=== PATIENT | male | born 1960 | race Caucasian/White ===

== ENCOUNTER 2020-05-24 15:23 | Inpatient (IN) | payer MEDICARE, MEDICAID ==
[2020-05-24] MEDS ORDERED: 50% Dextrose in Water 50 ML Syringe IV PRN ×2 (16:41→19:01)
[2020-05-24] MEDS ORDERED: Glucagon,Human Recombinant 1 MG Vial IM PRN ×2 (16:41→19:01)
[2020-05-24] MEDS ORDERED: ALPRAZolam 0.5 MG Tab PO PRN (16:47)
[2020-05-24] MEDS ORDERED: Albuterol 8 GM Inhaler INH PRN (17:00)
[2020-05-24] MEDS: Furosemide 40 MG Tab PO SCH (17:42)
[2020-05-24 17:43] LABS: BLOOD UREA NITROGEN,BUN 41 mg/dL (7.0-18.0); CARBON DIOXIDE,CO2 34.7 mmol/L (21.0-32.0); CHLORIDE,CL 97 mmol/L (98-107); GLUCOSE RANDOM 172 mg/dL (74-106); SODIUM,NA 134 mmol/L (136-148)
[2020-05-24] MEDS: Piperacillin/Tazobactam 4.5 GM in Sodium Chloride 0.9% 100 ML IV SCH ×2 (17:44→23:19)
[2020-05-24 17:47] LABS: HEMOGLOBIN A1C 8.6 %
[2020-05-24] MEDS: Insulin Aspart 100 Units/ML 3 ML Pen SUBCUT SCH (17:57)
--- NOTE | 2020-05-24 18:15 | PCM.HP.2 ---
H&P History of Present Illness - General Date of Service: 05/24/20 Admit Problem/Dx: Admission Diagnosis/Problem Admission Diagnosis/Problem Diabetic foot ulcer - History of Present Illness Initial Comments - Free Text/Narative: 60-year-old male direct admission to the medical floor for preop for left foot diabetic ulcer debridement. Patient states he had an MRI of the left foot this past Wednesday and visited with his assistant community manager on . Per podiatry visit there were concerns of possible soft tissue infection of the left foot. Patient admitted to the medical floor for IV antibiotics and preop work-up for surgery which is scheduled for tomorrow. Patient states past medical history to include hypertension, CHF, diabetes, COPD (3-4 L oxygen requirement at home), hypothyroidism, multiple myeloma with treatment to begin this coming Wednesday with lenalidomide. Patient started on IV vancomycin and Zosyn, n.p.o. after midnight. - Related Data Allergies/Adverse Reactions: Allergies Allergy/AdvReac Type Severity Reaction Status Date / Time No Known Allergies Allergy Verified 05/24/20 15:36 Home Medications: Home Meds ALPRAZolam [Alprazolam] 0.5 mg PO BID PRN 05/24/20 [History] Acetaminophen/HYDROcodone [Hailey 325-10 MG] 1 tab PO Q4H PRN 05/24/20 [History] Albuterol [Take Home: Albuterol 18 GM, 1 INH Pack] 2 inh IH Q4H PRN 05/24/20 [History] Budesonide/Formoterol [Symbicort 160-4.5 MCG] 2 inh IH BID 05/24/20 [History] Docusate Sodium [Colace] 200 mg PO BEDTIME 05/24/20 [History] Furosemide 40 mg PO BID 05/24/20 [History] Insulin Glargine,Hum.Rec.Anlog [Basaglar Kwikpen U-100] 60 unit SUBCUT DAILY 05/24/20 [History] Ipratropium/Albuterol Sulfate [Iprat-Albut 0.5-3(2.5) mg/3 ml] 3 ml PO TID 05/24/20 [History] Lenalidomide [Revlimid] 15 mg PO .DAILY X 21 DAYS 05/24/20 [History] Levothyroxine 112 mcg PO ACBREAKFAST 05/24/20 [History] Losartan [Cozaar] 50 mg PO DAILY 05/24/20 [History] Potassium Chloride 10 meq PO DAILY 05/24/20 [History] metOLazone [Metolazone] 5 mg PO DAILY 05/24/20 [History] Social & Family History - Tobacco Use Tobacco Use Status *Q: Current Every Day Tobacco User Years of Tobacco use: 40 Packs/Tins Daily: 1 Second Hand Smoke Exposure: No - Caffeine Use Caffeine Use: Reports: None - Recreational Drug Use Recreational Drug Use: No H&P Review of Systems - Review of Systems: Review Of Systems: See Below General: Denies: Fever, Chills Pulmonary: Denies: Shortness of Breath, Cough Cardiovascular: Reports: Edema. Denies: Chest Pain, Lightheadedness Gastrointestinal: Denies: Abdominal Pain, Nausea, Vomiting Psychiatric: Denies: Confusion Neurological: Denies: Confusion, Dizziness, Headache Exam - Exam Exam: See Below - Vital Signs Vital Signs: Last Vital Signs Temp 98.7 F 05/24/20 15:35 Pulse 91 05/24/20 17:37 Resp 18 05/24/20 15:35 BP 100/61 05/24/20 17:37 Pulse Ox 94 L 05/24/20 17:37 Weight: 338 lb 9.6 oz - Exam Quality Assessment: Supplemental Oxygen (3-4L N/C) General: Alert, Oriented Lungs: Clear to Auscultation, Normal Respiratory Effort Cardiovascular: Regular Rate, Regular Rhythm GI/Abdominal Exam: Normal Bowel Sounds, Soft, Non-Tender Extremities: Pedal Edema Neuro Extensive - Mental Status: Alert, Oriented x3 Psychiatric: Alert - Patient Data Lab Results Last 24 hrs: Laboratory Results - last 24 hr 05/24/20 05/24/20 05/24/20 Range/Units 15:57 16:30 16:58 WBC 5.44 (4.0-11.0) K/uL RBC 4.56 (4.50-5.90) M/uL Hgb 13.3 (13.0-17.0) g/dL Hct 41.9 (38.0-50.0) % MCV 91.9 (80.0-98.0) fL MCH 29.2 (27.0-32.0) pg MCHC 31.7 (31.0-37.0) g/dL RDW Std Deviation 60.5 (28.0-62.0) fl RDW Coeff of Kathy 18 H (11.0-15.0) % Plt Count 175 (150-400) K/uL MPV 9.20 (7.40-12.00) fL Neut % (Auto) 66.5 (48.0-80.0) % Lymph % (Auto) 20.2 (16.0-40.0) % [place] % (Auto) 5.9 (0.0-15.0) % Eos % (Auto) 6.3 (0.0-7.0) % Baso % (Auto) 1.1 (0.0-1.5) % Neut # (Auto) 3.6 (1.4-5.7) K/uL Lymph # (Auto) 1.1 (0.6-2.4) K/uL [place] # (Auto) 0.3 (0.0-0.8) K/uL Eos # (Auto) 0.3 (0.0-0.7) K/uL Baso # (Auto) 0.1 (0.0-0.1) K/uL Nucleated RBC % 0.0 /100WBC Nucleated RBCs # 0 K/uL Sodium (136-148) mmol/L Potassium (3.5-5.1) mmol/L Chloride (98-107) mmol/L Carbon Dioxide (21.0-32.0) mmol/L BUN (7.0-18.0) mg/dL Creatinine (0.8-1.3) mg/dL Est Cr Clr Drug Dosing Estimated GFR (MDRD) ml/min Glucose (74-106) mg/dL POC Glucose 196 H (60-110) mg/dL Hemoglobin A1c (4.5 - 6.2) % Calcium (8.5-10.1) mg/dL Magnesium (1.8-2.4) mg/dL Total Bilirubin (0.2-1.0) mg/dL AST (15-37) IU/L ALT (14-63) IU/L Alkaline Phosphatase (46-116) U/L Total Protein (6.4-8.2) g/dL Albumin (3.4-5.0) g/dL Globulin (2.6-4.0) g/dL Albumin/Globulin Ratio (0.9-1.6) TSH 3rd Generation (0.36-3.74) uIU/mL SARS-CoV-2 RNA (HONORIO) NEGATIVE (NEGATIVE) 05/24/20 05/24/20 Range/Units 16:58 16:58 WBC (4.0-11.0) K/uL RBC (4.50-5.90) M/uL Hgb (13.0-17.0) g/dL Hct (38.0-50.0) % MCV (80.0-98.0) fL MCH (27.0-32.0) pg MCHC (31.0-37.0) g/dL RDW Std Deviation (28.0-62.0) fl RDW Coeff of Kathy (11.0-15.0) % Plt Count (150-400) K/uL MPV (7.40-12.00) fL Neut % (Auto) (48.0-80.0) % Lymph % (Auto) (16.0-40.0) % [place] % (Auto) (0.0-15.0) % Eos % (Auto) (0.0-7.0) % Baso % (Auto) (0.0-1.5) % Neut # (Auto) (1.4-5.7) K/uL Lymph # (Auto) (0.6-2.4) K/uL [place] # (Auto) (0.0-0.8) K/uL Eos # (Auto) (0.0-0.7) K/uL Baso # (Auto) (0.0-0.1) K/uL Nucleated RBC % /100WBC Nucleated RBCs # K/uL Sodium 134 L (136-148) mmol/L Potassium 4.0 (3.5-5.1) mmol/L Chloride 97 L (98-107) mmol/L Carbon Dioxide 34.7 H (21.0-32.0) mmol/L BUN 41 H (7.0-18.0) mg/dL Creatinine 1.2 (0.8-1.3) mg/dL Est Cr Clr Drug Dosing TNP Estimated GFR (MDRD) > 60.0 ml/min Glucose 172 H (74-106) mg/dL POC Glucose (60-110) mg/dL Hemoglobin A1c 8.6 H (4.5 - 6.2) % Calcium 8.9 (8.5-10.1) mg/dL Magnesium 2.2 (1.8-2.4) mg/dL Total Bilirubin 0.6 (0.2-1.0) mg/dL AST 15 (15-37) IU/L ALT 22 (14-63) IU/L Alkaline Phosphatase 137 H (46-116) U/L Total Protein 9.6 H (6.4-8.2) g/dL Albumin 2.3 L (3.4-5.0) g/dL Globulin 7.3 H (2.6-4.0) g/dL Albumin/Globulin Ratio 0.3 L (0.9-1.6) TSH 3rd Generation 2.05 (0.36-3.74) uIU/mL SARS-CoV-2 RNA (HONORIO) (NEGATIVE) Result Diagrams: 05/24/20 16:58 05/24/20 16:58 Sepsis Event Note - Focused Exam Vital Signs: Vital Signs Temp Pulse Resp BP Pulse Ox 05/24/20 17:37 91 100/61 94 L 05/24/20 15:35 98.7 F 96 18 94/58 L 89 L - Problem List (1) Diabetic foot ulcer SNOMED Code(s): 018528523 ICD Code: E11.621 - TYPE 2 DIABETES MELLITUS WITH FOOT ULCER; L97.509 - NON- PRESSURE CHRONIC ULCER OTH PRT UNSP FOOT W UNSP SEVERITY Status: Acute Current Visit: Yes (2) COPD (chronic obstructive pulmonary disease) SNOMED Code(s): 00392553 ICD Code: J44.9 - CHRONIC OBSTRUCTIVE PULMONARY DISEASE, UNSPECIFIED Status: Acute Current Visit: Yes (3) HTN (hypertension) SNOMED Code(s): 62752616 ICD Code: I10 - ESSENTIAL (PRIMARY) HYPERTENSION Status: Acute Current Visit: Yes (4) Type 2 diabetes mellitus SNOMED Code(s): 60049641 ICD Code: E11.9 - TYPE 2 DIABETES MELLITUS WITHOUT COMPLICATIONS Status: Acute Current Visit: Yes (5) Multiple myeloma SNOMED Code(s): 408465279 ICD Code: C90.00 - MULTIPLE MYELOMA NOT HAVING ACHIEVED REMISSION Status: Acute Current Visit: No (6) CHF (congestive heart failure) SNOMED Code(s): 87808565 ICD Code: I50.9 - HEART FAILURE, UNSPECIFIED Status: Acute Current Visit: No (7) Hypothyroid SNOMED Code(s): 96366075 ICD Code: E03.9 - HYPOTHYROIDISM, UNSPECIFIED Status: Acute Current Vis it: No Problem List Initiated/Reviewed/Updated: Yes Orders Last 24hrs: Active Orders 24 hr Category Date Time Status Patient Status [ADT] Routine ADT 05/24/20 16:54 Active Antiembolic Devices [RC] PER UNIT ROUTINE Care 05/24/20 17:16 Active Blood Glucose Check, Bedside [RC] WITHMEALSANDBED Care 05/24/20 17:12 Active Daily Weight [Height and Weight] [RC] DAILY Care 05/24/20 17:22 Active EKG 12 Lead [EKG Documentation Completion] [RC] ROUTINE Care 05/24/20 16:52 Active Oxygen Therapy [RC] PRN Care 05/24/20 17:12 Active RT Post Treatment Assessment [RC] Click to Edit Care 05/24/20 16:50 Active VTE/DVT Education [RC] PER UNIT ROUTINE Care 05/24/20 16:54 Active Vital Signs [RC] Q4H Care 05/24/20 16:54 Active [employer] Diet [DIET] Diet 05/24/20 Dinner Active NPO After Midnight [Nothing per Oral After Midnight Diet 05/25/20 Breakfast Active Diet] [DIET] Echo Comp wo Cont [US] Routine Exams 05/24/20 16:51 Ordered VANCOMYCIN TROUGH [CHEM] Timed Lab 05/26/20 06:30 Ordered ALPRAZolam [Xanax] Med 05/24/20 16:47 Active 0.5 mg PO BID PRN Acetaminophen/HYDROcodone [Hailey 325-10 MG] Med 05/24/20 16:47 Active 1 tab PO Q4H PRN Albuterol [Ventolin HFA] Med 05/24/20 17:00 Active 0 gm INH Q4H PRN Dextrose 50% in Water Med 05/24/20 16:41 Active 50 ml IV ASDIRECTED PRN Docusate Sodium [Colace] Med 05/24/20 21:00 Active 200 mg PO BEDTIME Furosemide [Lasix] Med 05/24/20 17:00 Active 40 mg PO BIDDIURETIC Glucagon,Human Recombinant [GlucaGen] Med 05/24/20 16:41 Active 1 mg IM ASDIRECTED PRN Insulin Aspart [NovoLOG] Med 05/24/20 17:00 Active See Protocol SUBCUT TIDAC Levothyroxine Med 05/25/20 07:30 Active 112 mcg PO ACBREAKFAST Patient's Own Medication [Ptom] Med 05/24/20 21:00 Active 2 each INH BIDRT Pharmacy to Dose - Vancomycin Med 05/24/20 17:30 Active 1 dose .XX ASDIRECTED Piperacillin/Tazobactam [Piperacil-Tazobact] 4.5 gm Med 05/24/20 18:00 Active Sodium Chloride 0.9% [Normal Saline] 100 ml IV Q6H Potassium Chloride [Klor-Con 10] Med 05/25/20 09:00 Active 10 meq PO DAILY VANCOmycin 2 GM/400 ML 2 gm Med 05/24/20 19:00 Active Premix Bag 1 bag IV Q12H metOLazone [Zaroxolyn] Med 05/25/20 09:00 Active 5 mg PO DAILY Sequential Compression Device [OM.PC] Per Unit Routine Oth 05/24/20 17:15 Ordered Resuscitation Status Routine Resus Stat 05/24/20 17:12 Ordered Medication Orders Hydrocodone Bitart/Acetaminophen (Acetaminophen/Hydrocodone 325-10 Mg Tab) 1 tab PO Q4H PRN PRN Reason: Pain Albuterol (Albuterol 8 Gm Inhaler) 0 gm INH Q4H PRN PRN Reason: Shortness of Breath Alprazolam (Alprazolam 0.5 Mg Tab) 0.5 mg PO BID PRN PRN Reason: Anxiety Dextrose/Water (50% Dextrose In Water 50 Ml Syringe) 50 ml IV ASDIRECTED PRN PRN Reason: Hypoglycemia Docusate Sodium (Docusate Sodium 100 Mg Cap) 200 mg PO BEDTIME [facility] Furosemide (Furosemide 40 Mg Tab) 40 mg PO BIDDIURETIC [facility] Last Admin: 05/24/20 17:42 Dose: 40 mg Documented by: SCARLET Glucagon (Glucagon,Human Recombinant 1 Mg Vial) 1 mg IM ASDIRECTED PRN PRN Reason: Hypoglycemia Piperacillin Sod/Tazobactam (Sod 4.5 gm/ Sodium Chloride) 100 mls @ 200 mls/hr IV Q6H [facility] Last Admin: 05/24/20 17:44 Dose: 200 mls/hr Documented by: SCARLET Vancomycin HCl 2 gm/ Premix 400 mls @ 200 mls/hr IV Q12H [facility] Insulin Aspart (Insulin Aspart 100 Units/Ml 3 Ml Pen) 0 unit SUBCUT TIDAC [facility]; Protocol Last Admin: 05/24/20 17:57 Dose: 1 unit Documented by: SCARLET Levothyroxine Sodium (Levothyroxine 112 Mcg Tab) 112 mcg PO ACBREAKFAST [facility] Metolazone (Metolazone 5 Mg Tab) 5 mg PO DAILY [facility] Budesonide/Formoterol 160-4.5 Mcg/Puff 6 Gm Inhaler 2 each INH BIDRT [facility] Potassium Chloride (Potassium Chloride 10 Meq Tab.Er) 10 meq PO DAILY [facility] Vancomycin HCl (Pharmacy To Dose - Vancomycin) 1 dose .XX ASDIRECTED [facility] Assessment/Plan Comment:: Pre-operationCBC, CMP, hemoglobin A1c, EKG, TSH, magnesium, echocardiogram, NPO after midnight Diabetic left foot ulcer-vancomycin, Zosyn every 8 hours. Diabetessliding scale insulin moderate, diabetic diet. Patient states that he takes Lantus 10 units in the daytime 10 units in the evening intermittently based on blood glucose measurements. Patient states that some days he does not take any Lantus prior to bedtime. Patient states that using only sliding scale insulin to control blood sugar levels is adequate. Resume home medications for hypertension, CHF, COPD, hypothyroidism. DVT prophylaxis, SCD. Nicotine patch 14 mg resume post surgery, Telemetry, Daily weight Oritz Score- 0.6%
[2020-05-24] MEDS ORDERED: Insulin Glargine,Human Rec. Analog 100 Units/ML 3 ML Pen SUBCUT PRN (19:01)
[2020-05-24] MEDS: VANCOmycin 2 GM/400 ML 2 GM in Premix Bag 1 BAG IV SCH (19:13)
[2020-05-24] MEDS: Budesonide/Formoterol 160-4.5 MCG/Puff 6 GM Inhaler INH SCH (21:05)
[2020-05-24] MEDS: Docusate Sodium 100 MG Cap PO SCH (21:26)
[2020-05-25] MEDS: Albuterol/Ipratropium 3.0-0.5 MG/3 ML Neb Soln NEB PRN ×2 (02:52→06:52)
[2020-05-25] MEDS: Piperacillin/Tazobactam 4.5 GM in Sodium Chloride 0.9% 100 ML IV SCH ×4 (05:26→23:15)
[2020-05-25 06:15] LABS: CARBON DIOXIDE,CO2 34.2 mmol/L (21.0-32.0); POTASSIUM,K 4.3 mmol/L (3.5-5.1)
[2020-05-25] MEDS ORDERED: Furosemide 40 MG/4 ML VIAL IVPUSH ONE (06:17)
[2020-05-25] MEDS: VANCOmycin 2 GM/400 ML 2 GM in Premix Bag 1 BAG IV SCH ×2 (06:55→18:28)
[2020-05-25] MEDS: Budesonide/Formoterol 160-4.5 MCG/Puff 6 GM Inhaler INH SCH ×3 (07:00→20:08)
[2020-05-25] MEDS: Insulin Aspart 100 Units/ML 3 ML Pen SUBCUT SCH ×3 (07:19→17:19)
[2020-05-25] MEDS: Levothyroxine 112 MCG Tab PO SCH (07:32)
--- NOTE | 2020-05-25 07:37 | PCM.PREANE ---
Preanesthetic Assessment - Anesthesia/Transfusion/Family Hx Anesthesia History: Prior Anesthesia Without Reaction Family History of Anesthesia Reaction: No Transfusion History: No Prior Transfusion(s) - Review of Systems General: Weakness Pulmonary: Shortness of Breath Cardiovascular: Dyspnea on Exertion (Hx CHF, Hx COPD, Hx Diabetes, Hx Shortness of Breath) - Physical Assessment NPO Status Date: 05/25/20 NPO Status Time: 00:05 Vital Signs: Last Vital Signs Temp 37.1 C 05/25/20 05:30 Pulse 88 05/25/20 06:38 Resp 18 05/25/20 06:38 BP 101/44 L 05/25/20 06:38 Pulse Ox 88 L 05/25/20 06:38 Height: 1.88 m Weight: 154.131 kg ASA Class: 4 Dentition: Reports: Bridge - Lab Values: Laboratory Last Values WBC 5.96 K/uL (4.0-11.0) 05/25/20 05:15 RBC 4.51 M/uL (4.50-5.90) 05/25/20 05:15 Hgb 13.1 g/dL (13.0-17.0) 05/25/20 05:15 Hct 41.8 % (38.0-50.0) 05/25/20 05:15 MCV 92.7 fL (80.0-98.0) 05/25/20 05:15 MCH 29.0 pg (27.0-32.0) 05/25/20 05:15 MCHC 31.3 g/dL (31.0-37.0) 05/25/20 05:15 RDW Std Deviation 61.7 fl (28.0-62.0) 05/25/20 05:15 RDW Coeff of Kathy 18 % (11.0-15.0) H 05/25/20 05:15 Plt Count 179 K/uL (150-400) 05/25/20 05:15 MPV 9.50 fL (7.40-12.00) 05/25/20 05:15 Neut % (Auto) 63.4 % (48.0-80.0) 05/25/20 05:15 Lymph % (Auto) 23.3 % (16.0-40.0) 05/25/20 05:15 [place] % (Auto) 6.5 % (0.0-15.0) 05/25/20 05:15 Eos % (Auto) 6.0 % (0.0-7.0) 05/25/20 05:15 Baso % (Auto) 0.8 % (0.0-1.5) 05/25/20 05:15 Neut # (Auto) 3.8 K/uL (1.4-5.7) 05/25/20 05:15 Lymph # (Auto) 1.4 K/uL (0.6-2.4) 05/25/20 05:15 [place] # (Auto) 0.4 K/uL (0.0-0.8) 05/25/20 05:15 Eos # (Auto) 0.4 K/uL (0.0-0.7) 05/25/20 05:15 Baso # (Auto) 0.1 K/uL (0.0-0.1) 05/25/20 05:15 Nucleated RBC % 0.0 /100WBC 05/25/20 05:15 Nucleated RBCs # 0 K/uL 05/25/20 05:15 Sodium 133 mmol/L (136-148) L 05/25/20 05:15 Potassium 4.3 mmol/L (3.5-5.1) 05/25/20 05:15 Chloride 98 mmol/L (98-107) 05/25/20 05:15 Carbon Dioxide 34.2 mmol/L (21.0-32.0) H 05/25/20 05:15 BUN 40 mg/dL (7.0-18.0) H 05/25/20 05:15 Creatinine 1.3 mg/dL (0.8-1.3) 05/25/20 05:15 Est Cr Clr Drug Dosing 70.29 mL/min 05/25/20 05:15 Estimated GFR (MDRD) 56.3 ml/min 05/25/20 05:15 Glucose 145 mg/dL (74-106) H 05/25/20 05:15 POC Glucose 148 mg/dL (60-110) H 05/25/20 06:52 Hemoglobin A1c 8.6 % (4.5-6.2) H 05/24/20 16:58 Calcium 8.7 mg/dL (8.5-10.1) 05/25/20 05:15 Magnesium 2.2 mg/dL (1.8-2.4) 05/24/20 16:58 Total Bilirubin 0.9 mg/dL (0.2-1.0) 05/25/20 05:15 AST 15 IU/L (15-37) 05/25/20 05:15 ALT 17 IU/L (14-63) 05/25/20 05:15 Alkaline Phosphatase 129 U/L (46-116) H 05/25/20 05:15 Total Protein 9.3 g/dL (6.4-8.2) H 05/25/20 05:15 Albumin 2.3 g/dL (3.4-5.0) L 05/25/20 05:15 Globulin 7.0 g/dL (2.6-4.0) H 05/25/20 05:15 Albumin/Globulin Ratio 0.3 (0.9-1.6) L 05/25/20 05:15 TSH 3rd Generation 2.05 uIU/mL (0.36-3.74) 05/24/20 16:58 SARS-CoV-2 RNA (HONORIO) NEGATIVE (NEGATIVE) 05/24/20 16:30 - Allergies Allergies/Adverse Reactions: Allergies Allergy/AdvReac Type Severity Reaction Status Date / Time No Known Allergies Allergy Verified 05/24/20 15:36 - Acknowledgements Anesthesia Type Planned: MAC Pt an Appropriate Candidate for the Planned Anesthesia: Yes Alternatives and Risks of Anesthesia Discussed w Pt/Guardian: Yes Pt/Guardian Understands and Agrees with Anesthesia Plan: Yes PreAnesthesia Questionnaire Cardiovascular History: Reports: Heart Failure, High Cholesterol, Hypertension, Stents Respiratory History: Reports: Asthma, COPD Endocrine/Metabolic History: Reports: Diabetes, Type II, Hypothyroidism, Obesity/BMI 30+ Oncologic (Cancer) History: Reports: Malignant Melanoma - Past Surgical History Other HEENT Surgeries/Procedures: bridge, wears reading glasses - SUBSTANCE USE Tobacco Use Status *Q: Current Every Day Tobacco User Second Hand Smoke Exposure: No Recreational Drug Use History: No - HOME MEDS Home Medications: Home Meds ALPRAZolam [Alprazolam] 0.5 mg PO BID PRN 05/24/20 [History] Acetaminophen/HYDROcodone [Horatio 325-10 MG] 1 tab PO Q4H PRN 05/24/20 [History] Albuterol [Take Home: Albuterol 18 GM, 1 INH Pack] 2 inh IH Q4H PRN 05/24/20 [History] Budesonide/Formoterol [Symbicort 160-4.5 MCG] 2 inh IH BID 05/24/20 [History] Docusate Sodium [Colace] 200 mg PO BEDTIME 05/24/20 [History] Doxycycline [Doxycycline Hyclate] 100 mg PO Q12HR 05/24/20 [History] Furosemide 40 mg PO BID 05/24/20 [History] Hydrocodone/Acetaminophen [Hydrocodone-Acetamin 10-325 mg] 1 each PO Q4HR PRN 05/24/20 [History] Insulin Glargine,Hum.Rec.Anlog [Basaglar Kwikpen U-100] 60 unit SQ 05/24/20 [History] Insulin Glargine,Hum.Rec.Anlog [Basaglar Kwikpen U-100] 60 unit SUBCUT DAILY 05/24/20 [History] Ipratropium/Albuterol Sulfate [Iprat-Albut 0.5-3(2.5) mg/3 ml] 3 ml PO TID 05/24/20 [History] Lenalidomide [Revlimid] 15 mg PO .DAILY X 21 DAYS 05/24/20 [History] Levothyroxine 112 mcg PO ACBREAKFAST 05/24/20 [History] Losartan [Cozaar] 50 mg PO DAILY 05/24/20 [History] Potassium Chloride 10 meq PO DAILY 05/24/20 [History] cephALEXin [Cephalexin] 500 mg PO Q6HR 05/24/20 [History] metOLazone [Metolazone] 5 mg PO DAILY 05/24/20 [History] predniSONE [predniSONE 5 MG/5 ML] 20 mg PO 05/24/20 [History] - CURRENT (IN HOUSE) MEDS Current Meds: Current Medications Hydrocodone Bitart/Acetaminophen (Acetaminophen/Hydrocodone 325-10 Mg Tab) 1 tab PO Q4H PRN PRN Reason: Pain Albuterol (Albuterol 8 Gm Inhaler) 0 gm INH Q4H PRN PRN Reason: Shortness of Breath Albuterol/Ipratropium (Albuterol/Ipratropium 3.0-0.5 Mg/3 Ml Neb Soln) 3 ml NEB Q4HRRT PRN PRN Reason: Dyspnea Last Admin: 05/25/20 06:52 Dose: 3 ml Documented by: Alprazolam (Alprazolam 0.5 Mg Tab) 0.5 mg PO BID PRN PRN Reason: Anxiety Last Admin: 05/24/20 19:13 Dose: 0.5 mg Documented by: Dextrose/Water (50% Dextrose In Water 50 Ml Syringe) 50 ml IV ASDIRECTED PRN PRN Reason: Hypoglycemia Dextrose/Water (50% Dextrose In Water 50 Ml Syringe) 50 ml IV ASDIRECTED PRN PRN Reason: Hypoglycemia Docusate Sodium (Docusate Sodium 100 Mg Cap) 200 mg PO BEDTIME [facility] Last Admin: 05/24/20 21:26 Dose: 200 mg Documented by: Furosemide (Furosemide 40 Mg Tab) 40 mg PO BIDDIURETIC [facility] Last Admin: 05/24/20 17:42 Dose: 40 mg Documented by: Glucagon (Glucagon,Human Recombinant 1 Mg Vial) 1 mg IM ASDIRECTED PRN PRN Reason: Hypoglycemia Glucagon (Glucagon,Human Recombinant 1 Mg Vial) 1 mg IM ASDIRECTED PRN PRN Reason: Hypoglycemia Piperacillin Sod/Tazobactam (Sod 4.5 gm/ Sodium Chloride) 100 mls @ 200 mls/hr IV Q6H [facility] Last Admin: 05/25/20 05:26 Dose: 200 mls/hr Documented by: Vancomycin HCl 2 gm/ Premix 400 mls @ 200 mls/hr IV Q12H [facility] Last Admin: 05/25/20 06:55 Dose: 200 mls/hr Documented by: Insulin Aspart (Insulin Aspart 100 Units/Ml 3 Ml Pen) 0 unit SUBCUT TIDAC [facility]; Protocol Last Admin: 05/25/20 07:19 Dose: Not Given Documented by: Insulin Glargine (Insulin Glargine,Human Rec. Analog 100 Units/Ml 3 Ml Pen) 10 units SUBCUT BEDTIME PRN PRN Reason: Hyperglycemia Levothyroxine Sodium (Levothyroxine 112 Mcg Tab) 112 mcg PO ACBREAKFAST [facility] Last Admin: 05/25/20 07:32 Dose: Not Given Documented by: Metolazone (Metolazone 5 Mg Tab) 5 mg PO DAILY [facility] Budesonide/Formoterol 160-4.5 Mcg/Puff 6 Gm Inhaler 2 each INH BIDRT [facility] Last Admin: 05/25/20 07:00 Dose: Not Given Documented by: Potassium Chloride (Potassium Chloride 10 Meq Tab.Er) 10 meq PO DAILY [facility] Vancomycin HCl (Pharmacy To Dose - Vancomycin) 1 dose .XX ASDIRECTED [facility] Discontinued Medications Furosemide (Furosemide 40 Mg/4 Ml Vial) 40 mg IVPUSH NOW ONE Stop: 05/25/20 06:18 Last Admin: 05/25/20 06:41 Dose: 40 mg Documented by: Lenalidomide [ Revlimid] 15 Mg Capsule 1 each PO DAILY [facility]
[2020-05-25] MEDS: Furosemide 40 MG Tab PO SCH ×2 (07:57→07:59)
--- NOTE | 2020-05-25 07:58 | CR ---
INDICATION: Diabetic foot ulcer. Preoperative chest x-ray. Technique : AP portable chest x-ray FINDINGS: The multiple lytic lesions in the skeleton reported on prior cross-sectional imaging due to the patient`s known multiple myeloma are not well visualized on this study. Small lytic/lucent lesion left clavicle. The heart is upper limits of normal. Rounded area of focal moderate opacity in the right lung base medially could be related to a small amount of infiltrate and/or atelectasis but other masslike opacity is not excluded. Consider correlation with PA and lateral chest x-ray prior to surgery to better evaluate this and/or comparison with recent and/or previous x-rays. Lateral to this opacity there is platelike atelectasis or scarring in the right lung base. Mild platelike atelectasis or scarring in the left mid and lower lung. Lungs otherwise clear. Pulmonary vascularity in the upper lungs mildly increase consistent pulmonary venous congestion. Moderate aortic calcification. Chest otherwise unremarkable. Dictated by Rashard Webb MD @ May 25 2020 7:57AM Signed by Dr. Rashard Webb @ May 25 2020 7:57AM
[2020-05-25] MEDS: Metolazone 5 MG Tab PO SCH (07:59)
[2020-05-25] MEDS: Potassium Chloride 10 MEQ Tab.ER PO SCH (10:09)
[2020-05-25] MEDS: Acetaminophen/HYDROcodone 325-10 MG Tab PO PRN ×3 (10:09→23:16)
[2020-05-25] MEDS: Sodium Chloride 0.65% Nasal Spray 45 ML Bottle NAS SCH ×4 (11:24→22:18)
--- NOTE | 2020-05-25 11:56 | PCM.PN ---
- General Info Date of Service: 05/25/20 Subjective Update: Patient states that he is tired this morning due to sleeping in the chair overnight. Patient states his bed was uncomfortable which is why he can sleep in it. Patient denies chest pain, shortness of breath, headaches, fever, chill, nausea, vomiting. - Review of Systems General: Denies: Fever, Fatigue, Chills Pulmonary: Denies: Shortness of Breath, Pleuritic Chest Pain Cardiovascular: Reports: Edema. Denies: Chest Pain Gastrointestinal: Denies: Abdominal Pain, Nausea, Vomiting Neurological: Denies: Confusion, Dizziness, Headache Psychiatric: Denies: Confusion - Patient Data Vitals - Most Recent: Last Vital Signs Temp 98.6 F 05/25/20 10:16 Pulse 85 05/25/20 10:16 Resp 18 05/25/20 10:16 BP 92/54 L 05/25/20 10:16 Pulse Ox 6 L 05/25/20 10:16 Weight - Most Recent: 339 lb 12.8 oz I&O - Last 24 Hours: Intake & Output 05/24/20 05/25/20 05/25/20 22:59 06:59 14:59 Intake Total 400 750 400 Output Total 900 Balance 400 -150 400 Lab Results Last 24 Hours: Laboratory Results - last 24 hr 05/24/20 05/24/20 05/24/20 Range/Units 15:57 16:30 16:58 WBC 5.44 (4.0-11.0) K/uL RBC 4.56 (4.50-5.90) M/uL Hgb 13.3 (13.0-17.0) g/dL Hct 41.9 (38.0-50.0) % MCV 91.9 (80.0-98.0) fL MCH 29.2 (27.0-32.0) pg MCHC 31.7 (31.0-37.0) g/dL RDW Std Deviation 60.5 (28.0-62.0) fl RDW Coeff of Kathy 18 H (11.0-15.0) % Plt Count 175 (150-400) K/uL MPV 9.20 (7.40-12.00) fL Neut % (Auto) 66.5 (48.0-80.0) % Lymph % (Auto) 20.2 (16.0-40.0) % [place] % (Auto) 5.9 (0.0-15.0) % Eos % (Auto) 6.3 (0.0-7.0) % Baso % (Auto) 1.1 (0.0-1.5) % Neut # (Auto) 3.6 (1.4-5.7) K/uL Lymph # (Auto) 1.1 (0.6-2.4) K/uL [place] # (Auto) 0.3 (0.0-0.8) K/uL Eos # (Auto) 0.3 (0.0-0.7) K/uL Baso # (Auto) 0.1 (0.0-0.1) K/uL Nucleated RBC % 0.0 /100WBC Nucleated RBCs # 0 K/uL Sodium (136-148) mmol/L Potassium (3.5-5.1) mmol/L Chloride (98-107) mmol/L Carbon Dioxide (21.0-32.0) mmol/L BUN (7.0-18.0) mg/dL Creatinine (0.8-1.3) mg/dL Est Cr Clr Drug Dosing Estimated GFR (MDRD) ml/min Glucose (74-106) mg/dL POC Glucose 196 H (60-110) mg/dL Hemoglobin A1c (4.5 - 6.2) % Calcium (8.5-10.1) mg/dL Magnesium (1.8-2.4) mg/dL Total Bilirubin (0.2-1.0) mg/dL AST (15-37) IU/L ALT (14-63) IU/L Alkaline Phosphatase (46-116) U/L B-Natriuretic Peptide (<100) PG/ML Total Protein (6.4-8.2) g/dL Albumin (3.4-5.0) g/dL Globulin (2.6-4.0) g/dL Albumin/Globulin Ratio (0.9-1.6) TSH 3rd Generation (0.36-3.74) uIU/mL SARS-CoV-2 RNA (HONORIO) NEGATIVE (NEGATIVE) 05/24/20 05/24/20 05/24/20 Range/Units 16:58 16:58 21:23 WBC (4.0-11.0) K/uL RBC (4.50-5.90) M/uL Hgb (13.0-17.0) g/dL Hct (38.0-50.0) % MCV (80.0-98.0) fL MCH (27.0-32.0) pg MCHC (31.0-37.0) g/dL RDW Std Deviation (28.0-62.0) fl RDW Coeff of Kathy (11.0-15.0) % Plt Count (150-400) K/uL MPV (7.40-12.00) fL Neut % (Auto) (48.0-80.0) % Lymph % (Auto) (16.0-40.0) % [place] % (Auto) (0.0-15.0) % Eos % (Auto) (0.0-7.0) % Baso % (Auto) (0.0-1.5) % Neut # (Auto) (1.4-5.7) K/uL Lymph # (Auto) (0.6-2.4) K/uL [place] # (Auto) (0.0-0.8) K/uL Eos # (Auto) (0.0-0.7) K/uL Baso # (Auto) (0.0-0.1) K/uL Nucleated RBC % /100WBC Nucleated RBCs # K/uL Sodium 134 L (136-148) mmol/L Potassium 4.0 (3.5-5.1) mmol/L Chloride 97 L (98-107) mmol/L Carbon Dioxide 34.7 H (21.0-32.0) mmol/L BUN 41 H (7.0-18.0) mg/dL Creatinine 1.2 (0.8-1.3) mg/dL Est Cr Clr Drug Dosing TNP Estimated GFR (MDRD) > 60.0 ml/min Glucose 172 H (74-106) mg/dL POC Glucose 151 H (60-110) mg/dL Hemoglobin A1c 8.6 H (4.5 - 6.2) % Calcium 8.9 (8.5-10.1) mg/dL Magnesium 2.2 (1.8-2.4) mg/dL Total Bilirubin 0.6 (0.2-1.0) mg/dL AST 15 (15-37) IU/L ALT 22 (14-63) IU/L Alkaline Phosphatase 137 H (46-116) U/L B-Natriuretic Peptide (<100) PG/ML Total Protein 9.6 H (6.4-8.2) g/dL Albumin 2.3 L (3.4-5.0) g/dL Globulin 7.3 H (2.6-4.0) g/dL Albumin/Globulin Ratio 0.3 L (0.9-1.6) TSH 3rd Generation 2.05 (0.36-3.74) uIU/mL SARS-CoV-2 RNA (HONORIO) (NEGATIVE) 05/25/20 05/25/20 05/25/20 Range/Units 05:15 05:15 05:15 WBC 5.96 (4.0-11.0) K/uL RBC 4.51 (4.50-5.90) M/uL Hgb 13.1 (13.0-17.0) g/dL Hct 41.8 (38.0-50.0) % MCV 92.7 (80.0-98.0) fL MCH 29.0 (27.0-32.0) pg MCHC 31.3 (31.0-37.0) g/dL RDW Std Deviation 61.7 (28.0-62.0) fl RDW Coeff of Kathy 18 H (11.0-15.0) % Plt Count 179 (150-400) K/uL MPV 9.50 (7.40-12.00) fL Neut % (Auto) 63.4 (48.0-80.0) % Lymph % (Auto) 23.3 (16.0-40.0) % [place] % (Auto) 6.5 (0.0-15.0) % Eos % (Auto) 6.0 (0.0-7.0) % Baso % (Auto) 0.8 (0.0-1.5) % Neut # (Auto) 3.8 (1.4-5.7) K/uL Lymph # (Auto) 1.4 (0.6-2.4) K/uL [place] # (Auto) 0.4 (0.0-0.8) K/uL Eos # (Auto) 0.4 (0.0-0.7) K/uL Baso # (Auto) 0.1 (0.0-0.1) K/uL Nucleated RBC % 0.0 /100WBC Nucleated RBCs # 0 K/uL Sodium 133 L (136-148) mmol/L Potassium 4.3 (3.5-5.1) mmol/L Chloride 98 (98-107) mmol/L Carbon Dioxide 34.2 H (21.0-32.0) mmol/L BUN 40 H (7.0-18.0) mg/dL Creatinine 1.3 (0.8-1.3) mg/dL Est Cr Clr Drug Dosing 70.29 Estimated GFR (MDRD) 56.3 ml/min Glucose 145 H (74-106) mg/dL POC Glucose (60-110) mg/dL Hemoglobin A1c (4.5 - 6.2) % Calcium 8.7 (8.5-10.1) mg/dL Magnesium (1.8-2.4) mg/dL Total Bilirubin 0.9 (0.2-1.0) mg/dL AST 15 (15-37) IU/L ALT 17 (14-63) IU/L Alkaline Phosphatase 129 H (46-116) U/L B-Natriuretic Peptide 122 H (<100) PG/ML Total Protein 9.3 H (6.4-8.2) g/dL Albumin 2.3 L (3.4-5.0) g/dL Globulin 7.0 H (2.6-4.0) g/dL Albumin/Globulin Ratio 0.3 L (0.9-1.6) TSH 3rd Generation (0.36-3.74) uIU/mL SARS-CoV-2 RNA (HONORIO) (NEGATIVE) 05/25/20 Range/Units 06:52 WBC (4.0-11.0) K/uL RBC (4.50-5.90) M/uL Hgb (13.0-17.0) g/dL Hct (38.0-50.0) % MCV (80.0-98.0) fL MCH (27.0-32.0) pg MCHC (31.0-37.0) g/dL RDW Std Deviation (28.0-62.0) fl RDW Coeff of Kathy (11.0-15.0) % Plt Count (150-400) K/uL MPV (7.40-12.00) fL Neut % (Auto) (48.0-80.0) % Lymph % (Auto) (16.0-40.0) % [place] % (Auto) (0.0-15.0) % Eos % (Auto) (0.0-7.0) % Baso % (Auto) (0.0-1.5) % Neut # (Auto) (1.4-5.7) K/uL Lymph # (Auto) (0.6-2.4) K/uL [place] # (Auto) (0.0-0.8) K/uL Eos # (Auto) (0.0-0.7) K/uL Baso # (Auto) (0.0-0.1) K/uL Nucleated RBC % /100WBC Nucleated RBCs # K/uL Sodium (136-148) mmol/L Potassium (3.5-5.1) mmol/L Chloride (98-107) mmol/L Carbon Dioxide (21.0-32.0) mmol/L BUN (7.0-18.0) mg/dL Creatinine (0.8-1.3) mg/dL Est Cr Clr Drug Dosing Estimated GFR (MDRD) ml/min Glucose (74-106) mg/dL POC Glucose 148 H (60-110) mg/dL Hemoglobin A1c (4.5 - 6.2) % Calcium (8.5-10.1) mg/dL Magnesium (1.8-2.4) mg/dL Total Bilirubin (0.2-1.0) mg/dL AST (15-37) IU/L ALT (14-63) IU/L Alkaline Phosphatase (46-116) U/L B-Natriuretic Peptide (<100) PG/ML Total Protein (6.4-8.2) g/dL Albumin (3.4-5.0) g/dL Globulin (2.6-4.0) g/dL Albumin/Globulin Ratio (0.9-1.6) TSH 3rd Generation (0.36-3.74) uIU/mL SARS-CoV-2 RNA (HONORIO) (NEGATIVE) Med Orders - Current: Current Medications Hydrocodone Bitart/Acetaminophen (Acetaminophen/Hydrocodone 325-10 Mg Tab) 1 tab PO Q4H PRN PRN Reason: Pain Last Admin: 05/25/20 10:09 Dose: 1 tab Documented by: Albuterol (Albuterol 8 Gm Inhaler) 0 gm INH Q4H PRN PRN Reason: Shortness of Breath Albuterol/Ipratropium (Albuterol/Ipratropium 3.0-0.5 Mg/3 Ml Neb Soln) 3 ml NEB Q4HRRT PRN PRN Reason: Dyspnea Last Admin: 05/25/20 06:52 Dose: 3 ml Documented by: Alprazolam (Alprazolam 0.5 Mg Tab) 0.5 mg PO BID PRN PRN Reason: Anxiety Last Admin: 05/24/20 19:13 Dose: 0.5 mg Documented by: Budesonide/Formoterol Fumarate (Budesonide/Formoterol 160-4.5 Mcg/Puff 6 Gm Inhaler) 2 gm INH BIDRT JYOTSNA Last Admin: 05/25/20 08:27 Dose: 1 inhalation Documented by: Dextrose/Water (50% Dextrose In Water 50 Ml Syringe) 50 ml IV ASDIRECTED PRN PRN Reason: Hypoglycemia Docusate Sodium (Docusate Sodium 100 Mg Cap) 200 mg PO BEDTIME JYOTSNA Last Admin: 05/24/20 21:26 Dose: 200 mg Documented by: Furosemide (Furosemide 40 Mg/4 Ml Vial) 60 mg IVPUSH TID JYOTSNA Glucagon (Glucagon,Human Recombinant 1 Mg Vial) 1 mg IM ASDIRECTED PRN PRN Reason: Hypoglycemia Piperacillin Sod/Tazobactam (Sod 4.5 gm/ Sodium Chloride) 100 mls @ 200 mls/hr IV Q6H JYOTSNA Last Admin: 05/25/20 11:24 Dose: 200 mls/hr Documented by: Vancomycin HCl 2 gm/ Premix 400 mls @ 200 mls/hr IV Q12H JYOTSNA Last Admin: 05/25/20 06:55 Dose: 200 mls/hr Documented by: Insulin Aspart (Insulin Aspart 100 Units/Ml 3 Ml Pen) 0 unit SUBCUT TIDAC [facility]; Protocol Last Admin: 05/25/20 07:19 Dose: Not Given Documented by: Insulin Glargine (Insulin Glargine,Human Rec. Analog 100 Units/Ml 3 Ml Pen) 10 units SUBCUT BEDTIME PRN PRN Reason: Hyperglycemia Levothyroxine Sodium (Levothyroxine 112 Mcg Tab) 112 mcg PO ACBREAKFAST [facility] Last Admin: 05/25/20 07:32 Dose: Not Given Documented by: Metolazone (Metolazone 5 Mg Tab) 5 mg PO DAILY [facility] Last Admin: 05/25/20 07:59 Dose: Not Given Documented by: Potassium Chloride (Potassium Chloride 10 Meq Tab.Er) 10 meq PO DAILY [facility] Last Admin: 05/25/20 10:09 Dose: 10 meq Documented by: Sodium Chloride (Sodium Chloride 0.65% Nasal [place] 45 Ml Bottle) 1 ml PAULA Q4H [facility] Last Admin: 05/25/20 11:24 Dose: 2 sprays Documented by: Vancomycin HCl (Pharmacy To Dose - Vancomycin) 1 dose .XX ASDIRECTED [facility] Discontinued Medications Furosemide (Furosemide 40 Mg Tab) 40 mg PO BIDDIURETIC [facility] Last Admin: 05/25/20 07:59 Dose: Not Given Documented by: Furosemide (Furosemide 40 Mg/4 Ml Vial) 40 mg IVPUSH NOW ONE Stop: 05/25/20 06:18 Last Admin: 05/25/20 06:41 Dose: 40 mg Documented by: Furosemide (Furosemide 20 Mg/2 Ml Vial) 60 mg IVPUSH DAILY [facility] Budesonide/Formoterol 160-4.5 Mcg/Puff 6 Gm Inhaler 2 each INH BIDRT [facility] Last Admin: 05/25/20 07:00 Dose: Not Given Documented by: Lenalidomide [ Revlimid] 15 Mg Capsule 1 each PO DAILY [facility] - Exam Quality Assessment: Supplemental Oxygen (6 L via nasal cannula) General: Alert, Oriented Lungs: Normal Respiratory Effort, Crackles (Fine left lower lung base) Cardiovascular: Regular Rate, Regular Rhythm Extremities: Pedal Edema Psy/Mental Status: Alert - Patient Data Lab Results Last 24 hrs: Laboratory Results - last 24 hr 05/24/20 05/24/20 05/24/20 Range/Units 15:57 16:30 16:58 WBC 5.44 (4.0-11.0) K/uL RBC 4.56 (4.50-5.90) M/uL Hgb 13.3 (13.0-17.0) g/dL Hct 41.9 (38.0-50.0) % MCV 91.9 (80.0-98.0) fL MCH 29.2 (27.0-32.0) pg MCHC 31.7 (31.0-37.0) g/dL RDW Std Deviation 60.5 (28.0-62.0) fl RDW Coeff of Kathy 18 H (11.0-15.0) % Plt Count 175 (150-400) K/uL MPV 9.20 (7.40-12.00) fL Neut % (Auto) 66.5 (48.0-80.0) % Lymph % (Auto) 20.2 (16.0-40.0) % [place] % (Auto) 5.9 (0.0-15.0) % Eos % (Auto) 6.3 (0.0-7.0) % Baso % (Auto) 1.1 (0.0-1.5) % Neut # (Auto) 3.6 (1.4-5.7) K/uL Lymph # (Auto) 1.1 (0.6-2.4) K/uL [place] # (Auto) 0.3 (0.0-0.8) K/uL Eos # (Auto) 0.3 (0.0-0.7) K/uL Baso # (Auto) 0.1 (0.0-0.1) K/uL Nucleated RBC % 0.0 /100WBC Nucleated RBCs # 0 K/uL Sodium (136-148) mmol/L Potassium (3.5-5.1) mmol/L Chloride (98-107) mmol/L Carbon Dioxide (21.0-32.0) mmol/L BUN (7.0-18.0) mg/dL Creatinine (0.8-1.3) mg/dL Est Cr Clr Drug Dosing Estimated GFR (MDRD) ml/min Glucose (74-106) mg/dL POC Glucose 196 H (60-110) mg/dL Hemoglobin A1c (4.5 - 6.2) % Calcium (8.5-10.1) mg/dL Magnesium (1.8-2.4) mg/dL Total Bilirubin (0.2-1.0) mg/dL AST (15-37) IU/L ALT (14-63) IU/L Alkaline Phosphatase (46-116) U/L B-Natriuretic Peptide (<100) PG/ML Total Protein (6.4-8.2) g/dL Albumin (3.4-5.0) g/dL Globulin (2.6-4.0) g/dL Albumin/Globulin Ratio (0.9-1.6) TSH 3rd Generation (0.36-3.74) uIU/mL SARS-CoV-2 RNA (HONORIO) NEGATIVE (NEGATIVE) 05/24/20 05/24/20 05/24/20 Range/Units 16:58 16:58 21:23 WBC (4.0-11.0) K/uL RBC (4.50-5.90) M/uL Hgb (13.0-17.0) g/dL Hct (38.0-50.0) % MCV (80.0-98.0) fL MCH (27.0-32.0) pg MCHC (31.0-37.0) g/dL RDW Std Deviation (28.0-62.0) fl RDW Coeff of Kathy (11.0-15.0) % Plt Count (150-400) K/uL MPV (7.40-12.00) fL Neut % (Auto) (48.0-80.0) % Lymph % (Auto) (16.0-40.0) % [place] % (Auto) (0.0-15.0) % Eos % (Auto) (0.0-7.0) % Baso % (Auto) (0.0-1.5) % Neut # (Auto) (1.4-5.7) K/uL Lymph # (Auto) (0.6-2.4) K/uL [place] # (Auto) (0.0-0.8) K/uL Eos # (Auto) (0.0-0.7) K/uL Baso # (Auto) (0.0-0.1) K/uL Nucleated RBC % /100WBC Nucleated RBCs # K/uL Sodium 134 L (136-148) mmol/L Potassium 4.0 (3.5-5.1) mmol/L Chloride 97 L (98-107) mmol/L Carbon Dioxide 34.7 H (21.0-32.0) mmol/L BUN 41 H (7.0-18.0) mg/dL Creatinine 1.2 (0.8-1.3) mg/dL Est Cr Clr Drug Dosing TNP Estimated GFR (MDRD) > 60.0 ml/min Glucose 172 H (74-106) mg/dL POC Glucose 151 H (60-110) mg/dL Hemoglobin A1c 8.6 H (4.5 - 6.2) % Calcium 8.9 (8.5-10.1) mg/dL Magnesium 2.2 (1.8-2.4) mg/dL Total Bilirubin 0.6 (0.2-1.0) mg/dL AST 15 (15-37) IU/L ALT 22 (14-63) IU/L Alkaline Phosphatase 137 H (46-116) U/L B-Natriuretic Peptide (<100) PG/ML Total Protein 9.6 H (6.4-8.2) g/dL Albumin 2.3 L (3.4-5.0) g/dL Globulin 7.3 H (2.6-4.0) g/dL Albumin/Globulin Ratio 0.3 L (0.9-1.6) TSH 3rd Generation 2.05 (0.36-3.74) uIU/mL SARS-CoV-2 RNA (HONORIO) (NEGATIVE) 05/25/20 05/25/20 05/25/20 Range/Units 05:15 05:15 05:15 WBC 5.96 (4.0-11.0) K/uL RBC 4.51 (4.50-5.90) M/uL Hgb 13.1 (13.0-17.0) g/dL Hct 41.8 (38.0-50.0) % MCV 92.7 (80.0-98.0) fL MCH 29.0 (27.0-32.0) pg MCHC 31.3 (31.0-37.0) g/dL RDW Std Deviation 61.7 (28.0-62.0) fl RDW Coeff of Kathy 18 H (11.0-15.0) % Plt Count 179 (150-400) K/uL MPV 9.50 (7.40-12.00) fL Neut % (Auto) 63.4 (48.0-80.0) % Lymph % (Auto) 23.3 (16.0-40.0) % [place] % (Auto) 6.5 (0.0-15.0) % Eos % (Auto) 6.0 (0.0-7.0) % Baso % (Auto) 0.8 (0.0-1.5) % Neut # (Auto) 3.8 (1.4-5.7) K/uL Lymph # (Auto) 1.4 (0.6-2.4) K/uL [place] # (Auto) 0.4 (0.0-0.8) K/uL Eos # (Auto) 0.4 (0.0-0.7) K/uL Baso # (Auto) 0.1 (0.0-0.1) K/uL Nucleated RBC % 0.0 /100WBC Nucleated RBCs # 0 K/uL Sodium 133 L (136-148) mmol/L Potassium 4.3 (3.5-5.1) mmol/L Chloride 98 (98-107) mmol/L Carbon Dioxide 34.2 H (21.0-32.0) mmol/L BUN 40 H (7.0-18.0) mg/dL Creatinine 1.3 (0.8-1.3) mg/dL Est Cr Clr Drug Dosing 70.29 Estimated GFR (MDRD) 56.3 ml/min Glucose 145 H (74-106) mg/dL POC Glucose (60-110) mg/dL Hemoglobin A1c (4.5 - 6.2) % Calcium 8.7 (8.5-10.1) mg/dL Magnesium (1.8-2.4) mg/dL Total Bilirubin 0.9 (0.2-1.0) mg/dL AST 15 (15-37) IU/L ALT 17 (14-63) IU/L Alkaline Phosphatase 129 H (46-116) U/L B-Natriuretic Peptide 122 H (<100) PG/ML Total Protein 9.3 H (6.4-8.2) g/dL Albumin 2.3 L (3.4-5.0) g/dL Globulin 7.0 H (2.6-4.0) g/dL Albumin/Globulin Ratio 0.3 L (0.9-1.6) TSH 3rd Generation (0.36-3.74) uIU/mL SARS-CoV-2 RNA (HONORIO) (NEGATIVE) 05/25/20 Range/Units 06:52 WBC (4.0-11.0) K/uL RBC (4.50-5.90) M/uL Hgb (13.0-17.0) g/dL Hct (38.0-50.0) % MCV (80.0-98.0) fL MCH (27.0-32.0) pg MCHC (31.0-37.0) g/dL RDW Std Deviation (28.0-62.0) fl RDW Coeff of Kathy (11.0-15.0) % Plt Count (150-400) K/uL MPV (7.40-12.00) fL Neut % (Auto) (48.0-80.0) % Lymph % (Auto) (16.0-40.0) % [place] % (Auto) (0.0-15.0) % Eos % (Auto) (0.0-7.0) % Baso % (Auto) (0.0-1.5) % Neut # (Auto) (1.4-5.7) K/uL Lymph # (Auto) (0.6-2.4) K/uL [place] # (Auto) (0.0-0.8) K/uL Eos # (Auto) (0.0-0.7) K/uL Baso # (Auto) (0.0-0.1) K/uL Nucleated RBC % /100WBC Nucleated RBCs # K/uL Sodium (136-148) mmol/L Potassium (3.5-5.1) mmol/L Chloride (98-107) mmol/L Carbon Dioxide (21.0-32.0) mmol/L BUN (7.0-18.0) mg/dL Creatinine (0.8-1.3) mg/dL Est Cr Clr Drug Dosing Estimated GFR (MDRD) ml/min Glucose (74-106) mg/dL POC Glucose 148 H (60-110) mg/dL Hemoglobin A1c (4.5 - 6.2) % Calcium (8.5-10.1) mg/dL Magnesium (1.8-2.4) mg/dL Total Bilirubin (0.2-1.0) mg/dL AST (15-37) IU/L ALT (14-63) IU/L Alkaline Phosphatase (46-116) U/L B-Natriuretic Peptide (<100) PG/ML Total Protein (6.4-8.2) g/dL Albumin (3.4-5.0) g/dL Globulin (2.6-4.0) g/dL Albumin/Globulin Ratio (0.9-1.6) TSH 3rd Generation (0.36-3.74) uIU/mL SARS-CoV-2 RNA (HONORIO) (NEGATIVE) Result Diagrams: 05/25/20 05:15 05/25/20 05:15 Sepsis Event Note - Evaluation Sepsis Screening Result: No Definite Risk - Focused Exam Vital Signs: Vital Signs Temp Pulse Resp BP Pulse Ox 05/25/20 10:16 98.6 F 85 18 92/54 L 6 L 05/25/20 07:54 98.8 F 93 20 85/55 L 88 L 05/25/20 06:38 88 18 101/44 L 88 L 05/25/20 05:30 98.8 F 97 18 101/60 88 L - Problem List & Annotations (1) Diabetic foot ulcer SNOMED Code(s): 568818445 Code(s): E11.621 - TYPE 2 DIABETES MELLITUS WITH FOOT ULCER; L97.509 - NON- PRESSURE CHRONIC ULCER OTH PRT UNSP FOOT W UNSP SEVERITY Status: Acute Current Visit: Yes (2) COPD (chronic obstructive pulmonary disease) SNOMED Code(s): 89307714 Code(s): J44.9 - CHRONIC OBSTRUCTIVE PULMONARY DISEASE, UNSPECIFIED Status: Acute Current Visit: Yes (3) HTN (hypertension) SNOMED Code(s): 25061527 Code(s): I10 - ESSENTIAL (PRIMARY) HYPERTENSION Status: Acute Current Visit: Yes (4) Type 2 diabetes mellitus SNOMED Code(s): 11477399 Code(s): E11.9 - TYPE 2 DIABETES MELLITUS WITHOUT COMPLICATIONS Status: Acute Current Visit: Yes (5) Multiple myeloma SNOMED Code(s): 240793208 Code(s): C90.00 - MULTIPLE MYELOMA NOT HAVING ACHIEVED REMISSION Status: Acute Current Visit: No (6) CHF (congestive heart failure) SNOMED Code(s): 46832379 Code(s): I50.9 - HEART FAILURE, UNSPECIFIED Status: Acute Current Visit: No (7) Hypothyroid SNOMED Code(s): 49311443 Code(s): E03.9 - HYPOTHYROIDISM, UNSPECIFIED Status: Acute Current Visit: No - Problem List Review Problem List Initiated/Reviewed/Updated: Yes - My Orders Last 24 Hours: My Active Orders 05/24/20 16:41 Dextrose 50% in Water 50 ml IV ASDIRECTED PRN Glucagon,Human Recombinant [GlucaGen] 1 mg IM ASDIRECTED PRN 05/24/20 16:47 ALPRAZolam [Xanax] 0.5 mg PO BID PRN Acetaminophen/HYDROcodone [[place] 325-10 MG] 1 tab PO Q4H PRN 05/24/20 16:50 RT Post Treatment Assessment [RC] Click to Edit 05/24/20 16:51 Echo Comp wo Cont [US] Routine 05/24/20 16:52 EKG 12 Lead [EKG Documentation Completion] [RC] ROUTINE 05/24/20 16:54 Patient Status [ADT] Routine VTE/DVT Education [RC] PER UNIT ROUTINE Vital Signs [RC] Q4H 05/24/20 17:00 Albuterol [Ventolin HFA] 0 gm INH Q4H PRN Insulin Aspart [NovoLOG] See Protocol SUBCUT TIDAC 05/24/20 17:12 Blood Glucose Check, Bedside [RC] WITHMEALSANDBED Oxygen Therapy [RC] PRN Resuscitation Status Routine 05/24/20 17:15 Sequential Compression Device [OM.PC] Per Unit Routine 05/24/20 17:16 Antiembolic Devices [RC] PER UNIT ROUTINE 05/24/20 17:22 Daily Weight [Height and Weight] [RC] DAILY 05/24/20 17:30 Pharmacy to Dose - Vancomycin 1 dose .XX ASDIRECTED 05/24/20 18:00 Piperacillin/Tazobactam [Piperacil-Tazobact] 4.5 gm Sodium Chloride 0.9% [Normal Saline] 100 ml IV Q6H 05/24/20 18:31 Telemetry Monitoring [Cardiac Monitoring] [RC] Q8H 05/24/20 19:01 Insulin Glarg,Human.Rec.Analog [LantUS Solostar] 10 units SUBCUT BEDTIME PRN 05/24/20 19:12 Albuterol/Ipratropium [DuoNeb 3.0-0.5 MG/3 ML] 3 ml NEB Q4HRRT PRN 05/24/20 19:13 RT Aerosol Therapy [RC] ASDIRECTED 05/24/20 21:00 Docusate Sodium [Colace] 200 mg PO BEDTIME 05/25/20 07:30 Levothyroxine 112 mcg PO ACBREAKFAST 05/25/20 09:00 Potassium Chloride [Klor-Con 10] 10 meq PO DAILY metOLazone [Zaroxolyn] 5 mg PO DAILY 05/25/20 10:00 Sodium Chloride 0.65% [[place] Nasal [place]] 1 ml PAULA Q4H 05/25/20 Lunch 2 Gram Sodium Diet [DIET] [place] [employer] Diet [DIET] Fluid Restriction [DIET] 05/25/20 11:04 Patient Old Record [Obtain Past Medical Record] [OM.PC] Routine 05/25/20 11:10 Intake and Output Strict [RC] Q12H 05/25/20 14:00 Furosemide [Lasix] 60 mg IVPUSH TID 05/25/20 Dinner NPO After Midnight [Nothing per Oral After Midnight Diet] [DIET] 05/25/20 21:00 Budesonide/Formoterol [Symbicort 160-4.5 MCG] 2 gm INH BIDRT 05/26/20 05:11 CBC WITH AUTO DIFF [HEME] AM COMPREHENSIVE METABOLIC PN,CMP [CHEM] AM MAGNESIUM [CHEM] AM - Plan Plan:: Pre-operationCBC, CMP, hemoglobin A1c, EKG, TSH, magnesium, echocardiogram, NPO after midnight Mild CHF exacerbationPer nursing patient developed mild difficulty breathing overnight and it was noted that he had crackles in his lungs on physical exam. Patient given 40 mg IV Lasix this morning, chest x-ray taken this morning with impression of pulmonary vascularity in the upper lungs mildly increased consistent pulmonary venous congestion, BNP 122. Patient started on 60 mg IV Lasix 3 times daily, resume metolazone 5 mg p.o. daily, 2 g sodium diet, fluid restrict 1800 mL, strict I&O, daily weight. Diuretics to be held if patient's systolic blood pressure is at or below 90 mmHg. We will attempt to obtain medical records from previous visits. Diabetic left foot ulcer-vancomycin, Zosyn every 8 hours. Diabetessliding scale insulin moderate, diabetic diet. Lantus 10 units as needed bedtime if blood glucose levels are at or above 150. Resume home medications for hypertension, CHF, COPD, hypothyroidism. DVT prophylaxis, SCD. Nicotine patch 14 mg resume post surgery, Telemetry, Daily weight, strict I&O
[2020-05-25] MEDS: Furosemide 40 MG/4 ML VIAL IVPUSH SCH ×2 (13:52→22:20)
[2020-05-25] MEDS ORDERED: Furosemide 20 MG/2 ML VIAL IVPUSH SCH (14:30)
--- NOTE | 2020-05-25 17:42 | PCM.CONS ---
H&P History of Present Illness - General Date of Service: 05/25/20 Admit Problem/Dx: Admission Diagnosis/Problem Admission Diagnosis/Problem Diabetic foot ulcer Source of Information: Patient, Provider History Limitations: Reports: No Limitations - History of Present Illness Onset of Symptoms: Reports: Gradual Duration of Symptoms: Reports: Constant Location: Reports: Lower Extremity, Left Quality: Reports: Sharp Severity: Severe Improves with: Reports: None Worsens with: Reports: None Associated Symptoms: Reports: No Other Symptoms Left Foot Pain Score (Numeric/FACES): 7 - Related Data Allergies/Adverse Reactions: Allergies Allergy/AdvReac Type Severity Reaction Status Date / Time No Known Allergies Allergy Verified 05/24/20 15:36 Home Medications: Home Meds ALPRAZolam [Alprazolam] 0.5 mg PO BID PRN 05/24/20 [History] Acetaminophen/HYDROcodone [Ilfeld 325-10 MG] 1 tab PO Q4H PRN 05/24/20 [History] Albuterol [Take Home: Albuterol 18 GM, 1 INH Pack] 2 inh IH Q4H PRN 05/24/20 [History] Budesonide/Formoterol [Symbicort 160-4.5 MCG] 2 inh IH BID 05/24/20 [History] Docusate Sodium [Colace] 200 mg PO BEDTIME 05/24/20 [History] Doxycycline [Doxycycline Hyclate] 100 mg PO Q12HR 05/24/20 [History] Furosemide 40 mg PO BID 05/24/20 [History] Hydrocodone/Acetaminophen [Hydrocodone-Acetamin 10-325 mg] 1 each PO Q4HR PRN 05/24/20 [History] Insulin Glargine,Hum.Rec.Anlog [Basaglar Kwikpen U-100] 60 unit SQ 05/24/20 [History] Insulin Glargine,Hum.Rec.Anlog [Basaglar Kwikpen U-100] 60 unit SUBCUT DAILY 05/24/20 [History] Ipratropium/Albuterol Sulfate [Iprat-Albut 0.5-3(2.5) mg/3 ml] 3 ml PO TID 05/24/20 [History] Lenalidomide [Revlimid] 15 mg PO .DAILY X 21 DAYS 05/24/20 [History] Levothyroxine 112 mcg PO ACBREAKFAST 05/24/20 [History] Losartan [Cozaar] 50 mg PO DAILY 05/24/20 [History] Potassium Chloride 10 meq PO DAILY 05/24/20 [History] cephALEXin [Cephalexin] 500 mg PO Q6HR 05/24/20 [History] metOLazone [Metolazone] 5 mg PO DAILY 05/24/20 [History] predniSONE [predniSONE 5 MG/5 ML] 20 mg PO 05/24/20 [History] Past Medical History Cardiovascular History: Reports: Heart Failure, High Cholesterol, Hypertension, Stents Respiratory History: Reports: Asthma, COPD Endocrine/Metabolic History: Reports: Diabetes, Type II, Hypothyroidism, Obesity/BMI 30+ Oncologic (Cancer) History: Reports: Malignant Melanoma - Past Surgical History Other HEENT Surgeries/Procedures: bridge, wears reading glasses Social & Family History - Family History Neurological: Reports: Cerebral Aneurysms - Tobacco Use Tobacco Use Status *Q: Current Every Day Tobacco User Years of Tobacco use: 40 Packs/Tins Daily: 1 Second Hand Smoke Exposure: No - Caffeine Use Caffeine Use: Reports: None - Recreational Drug Use Recreational Drug Use: No H&P Review of Systems - Review of Systems: Review Of Systems: See Below General: Reports: Fatigue, Weight Gain Pulmonary: Reports: Shortness of Breath Musculoskeletal: Reports: Back Pain Exam - Exam Exam: See Below - Vital Signs Vital Signs: Last Vital Signs Temp 37.1 C 05/25/20 17:12 Pulse 89 05/25/20 17:12 Resp 18 05/25/20 17:12 BP 106/64 05/25/20 17:12 Pulse Ox 88 L 05/25/20 17:12 Weight: 154.131 kg - Exam Quality Assessment: Supplemental Oxygen Extremities: Pedal Edema Peripheral Pulses: 2+: Dorsalis Pedis (L), Dorsalis Pedis (R) Skin: Warm, Wound (ulcer to bone sub fifth metatarsal head left foot ) Physical Exam Comments:: patient has severe bilateral lower extremity edema. There is increased erythema over right lower extremity and unchanged moderate erythema on left lower extremity. There is 2+ pitting edema bilateral extremities. 1.5 cm diameter fibrotic and necrotic ulcer sub fifth metatarsal head. - Patient Data Lab Results Last 24 hrs: Laboratory Results - last 24 hr 05/24/20 05/24/20 05/24/20 Range/Units 16:30 16:58 16:58 WBC (4.0-11.0) K/uL RBC (4.50-5.90) M/uL Hgb (13.0-17.0) g/dL Hct (38.0-50.0) % MCV (80.0-98.0) fL MCH (27.0-32.0) pg MCHC (31.0-37.0) g/dL RDW Std Deviation (28.0-62.0) fl RDW Coeff of Kathy (11.0-15.0) % Plt Count (150-400) K/uL MPV (7.40-12.00) fL Neut % (Auto) (48.0-80.0) % Lymph % (Auto) (16.0-40.0) % [place] % (Auto) (0.0-15.0) % Eos % (Auto) (0.0-7.0) % Baso % (Auto) (0.0-1.5) % Neut # (Auto) (1.4-5.7) K/uL Lymph # (Auto) (0.6-2.4) K/uL [place] # (Auto) (0.0-0.8) K/uL Eos # (Auto) (0.0-0.7) K/uL Baso # (Auto) (0.0-0.1) K/uL Nucleated RBC % /100WBC Nucleated RBCs # K/uL Sodium 134 L (136-148) mmol/L Potassium 4.0 (3.5-5.1) mmol/L Chloride 97 L (98-107) mmol/L Carbon Dioxide 34.7 H (21.0-32.0) mmol/L BUN 41 H (7.0-18.0) mg/dL Creatinine 1.2 (0.8-1.3) mg/dL Est Cr Clr Drug Dosing TNP Estimated GFR (MDRD) > 60.0 ml/min Glucose 172 H (74-106) mg/dL POC Glucose (60-110) mg/dL Hemoglobin A1c 8.6 H (4.5 - 6.2) % Calcium 8.9 (8.5-10.1) mg/dL Magnesium 2.2 (1.8-2.4) mg/dL Total Bilirubin 0.6 (0.2-1.0) mg/dL AST 15 (15-37) IU/L ALT 22 (14-63) IU/L Alkaline Phosphatase 137 H (46-116) U/L B-Natriuretic Peptide (<100) PG/ML Total Protein 9.6 H (6.4-8.2) g/dL Albumin 2.3 L (3.4-5.0) g/dL Globulin 7.3 H (2.6-4.0) g/dL Albumin/Globulin Ratio 0.3 L (0.9-1.6) TSH 3rd Generation 2.05 (0.36-3.74) uIU/mL SARS-CoV-2 RNA (HONORIO) NEGATIVE (NEGATIVE) 05/24/20 05/25/20 05/25/20 Range/Units 21:23 05:15 05:15 WBC 5.96 (4.0-11.0) K/uL RBC 4.51 (4.50-5.90) M/uL Hgb 13.1 (13.0-17.0) g/dL Hct 41.8 (38.0-50.0) % MCV 92.7 (80.0-98.0) fL MCH 29.0 (27.0-32.0) pg MCHC 31.3 (31.0-37.0) g/dL RDW Std Deviation 61.7 (28.0-62.0) fl RDW Coeff of Kathy 18 H (11.0-15.0) % Plt Count 179 (150-400) K/uL MPV 9.50 (7.40-12.00) fL Neut % (Auto) 63.4 (48.0-80.0) % Lymph % (Auto) 23.3 (16.0-40.0) % [place] % (Auto) 6.5 (0.0-15.0) % Eos % (Auto) 6.0 (0.0-7.0) % Baso % (Auto) 0.8 (0.0-1.5) % Neut # (Auto) 3.8 (1.4-5.7) K/uL Lymph # (Auto) 1.4 (0.6-2.4) K/uL [place] # (Auto) 0.4 (0.0-0.8) K/uL Eos # (Auto) 0.4 (0.0-0.7) K/uL Baso # (Auto) 0.1 (0.0-0.1) K/uL Nucleated RBC % 0.0 /100WBC Nucleated RBCs # 0 K/uL Sodium 133 L (136-148) mmol/L Potassium 4.3 (3.5-5.1) mmol/L Chloride 98 (98-107) mmol/L Carbon Dioxide 34.2 H (21.0-32.0) mmol/L BUN 40 H (7.0-18.0) mg/dL Creatinine 1.3 (0.8-1.3) mg/dL Est Cr Clr Drug Dosing 70.29 Estimated GFR (MDRD) 56.3 ml/min Glucose 145 H (74-106) mg/dL POC Glucose 151 H (60-110) mg/dL Hemoglobin A1c (4.5 - 6.2) % Calcium 8.7 (8.5-10.1) mg/dL Magnesium (1.8-2.4) mg/dL Total Bilirubin 0.9 (0.2-1.0) mg/dL AST 15 (15-37) IU/L ALT 17 (14-63) IU/L Alkaline Phosphatase 129 H (46-116) U/L B-Natriuretic Peptide (<100) PG/ML Total Protein 9.3 H (6.4-8.2) g/dL Albumin 2.3 L (3.4-5.0) g/dL Globulin 7.0 H (2.6-4.0) g/dL Albumin/Globulin Ratio 0.3 L (0.9-1.6) TSH 3rd Generation (0.36-3.74) uIU/mL SARS-CoV-2 RNA (HONORIO) (NEGATIVE) 05/25/20 05/25/20 05/25/20 Range/Units 05:15 06:52 13:48 WBC (4.0-11.0) K/uL RBC (4.50-5.90) M/uL Hgb (13.0-17.0) g/dL Hct (38.0-50.0) % MCV (80.0-98.0) fL MCH (27.0-32.0) pg MCHC (31.0-37.0) g/dL RDW Std Deviation (28.0-62.0) fl RDW Coeff of Kathy (11.0-15.0) % Plt Count (150-400) K/uL MPV (7.40-12.00) fL Neut % (Auto) (48.0-80.0) % Lymph % (Auto) (16.0-40.0) % [place] % (Auto) (0.0-15.0) % Eos % (Auto) (0.0-7.0) % Baso % (Auto) (0.0-1.5) % Neut # (Auto) (1.4-5.7) K/uL Lymph # (Auto) (0.6-2.4) K/uL [place] # (Auto) (0.0-0.8) K/uL Eos # (Auto) (0.0-0.7) K/uL Baso # (Auto) (0.0-0.1) K/uL Nucleated RBC % /100WBC Nucleated RBCs # K/uL Sodium (136-148) mmol/L Potassium (3.5-5.1) mmol/L Chloride (98-107) mmol/L Carbon Dioxide (21.0-32.0) mmol/L BUN (7.0-18.0) mg/dL Creatinine (0.8-1.3) mg/dL Est Cr Clr Drug Dosing Estimated GFR (MDRD) ml/min Glucose (74-106) mg/dL POC Glucose 148 H 138 H (60-110) mg/dL Hemoglobin A1c (4.5 - 6.2) % Calcium (8.5-10.1) mg/dL Magnesium (1.8-2.4) mg/dL Total Bilirubin (0.2-1.0) mg/dL AST (15-37) IU/L ALT (14-63) IU/L Alkaline Phosphatase (46-116) U/L B-Natriuretic Peptide 122 H (<100) PG/ML Total Protein (6.4-8.2) g/dL Albumin (3.4-5.0) g/dL Globulin (2.6-4.0) g/dL Albumin/Globulin Ratio (0.9-1.6) TSH 3rd Generation (0.36-3.74) uIU/mL SARS-CoV-2 RNA (HONORIO) (NEGATIVE) 05/25/20 Range/Units 17:18 WBC (4.0-11.0) K/uL RBC (4.50-5.90) M/uL Hgb (13.0-17.0) g/dL Hct (38.0-50.0) % MCV (80.0-98.0) fL MCH (27.0-32.0) pg MCHC (31.0-37.0) g/dL RDW Std Deviation (28.0-62.0) fl RDW Coeff of Kathy (11.0-15.0) % Plt Count (150-400) K/uL MPV (7.40-12.00) fL Neut % (Auto) (48.0-80.0) % Lymph % (Auto) (16.0-40.0) % [place] % (Auto) (0.0-15.0) % Eos % (Auto) (0.0-7.0) % Baso % (Auto) (0.0-1.5) % Neut # (Auto) (1.4-5.7) K/uL Lymph # (Auto) (0.6-2.4) K/uL [place] # (Auto) (0.0-0.8) K/uL Eos # (Auto) (0.0-0.7) K/uL Baso # (Auto) (0.0-0.1) K/uL Nucleated RBC % /100WBC Nucleated RBCs # K/uL Sodium (136-148) mmol/L Potassium (3.5-5.1) mmol/L Chloride (98-107) mmol/L Carbon Dioxide (21.0-32.0) mmol/L BUN (7.0-18.0) mg/dL Creatinine (0.8-1.3) mg/dL Est Cr Clr Drug Dosing Estimated GFR (MDRD) ml/min Glucose (74-106) mg/dL POC Glucose 219 H (60-110) mg/dL Hemoglobin A1c (4.5 - 6.2) % Calcium (8.5-10.1) mg/dL Magnesium (1.8-2.4) mg/dL Total Bilirubin (0.2-1.0) mg/dL AST (15-37) IU/L ALT (14-63) IU/L Alkaline Phosphatase (46-116) U/L B-Natriuretic Peptide (<100) PG/ML Total Protein (6.4-8.2) g/dL Albumin (3.4-5.0) g/dL Globulin (2.6-4.0) g/dL Albumin/Globulin Ratio (0.9-1.6) TSH 3rd Generation (0.36-3.74) uIU/mL SARS-CoV-2 RNA (HONORIO) (NEGATIVE) Result Diagrams: 05/25/20 05:15 05/25/20 05:15 Sepsis Event Note - Evaluation Sepsis Screening Result: No Definite Risk - Focused Exam Vital Signs: Vital Signs Temp Pulse Resp BP Pulse Ox 05/25/20 17:12 37.1 C 89 18 106/64 88 L 05/25/20 13:50 36.8 C 92 18 105/60 88 L 05/25/20 10:16 37.0 C 85 18 92/54 L 6 L 05/25/20 07:54 37.1 C 93 20 85/55 L 88 L 05/25/20 06:38 88 18 101/44 L 88 L *Q Meaningful Use (ADM) - VTE *Q VTE Mechanical Contraindications *Q: Hypervolemia - VTE Risk Assess *Q Each Risk Factor Represents 1 Point: Swollen Legs, Current, Obesity ( BMI > 25 kg/m2), Congestive heart failure (CHF), Abnormal Pulmonary Function (COPD) Total Score 1 Point Risk Factors: 4 Each Risk Factor Represents 2 Points: Age 60 - 74 Years Total Score 2 Point Risk Factors: 2 Each Risk Factor Represents 3 Points: None Total Score 3 Point Risk Factors: 0 Consult PN Assessment/Plan Procedures: Procedures 3-D RADIOTHERAPY PLAN (04/22/20) ASSAY IGA/IGD/IGG/IGM EACH (04/04/20) ASSAY NEPHELOMETRY NOT SPEC (04/04/20) ASSAY OF BETA-2 PROTEIN (04/04/20) ASSAY OF BLOOD/URIC ACID (04/04/20) ASSAY OF NATRIURETIC PEPTIDE (04/22/20) ASSAY OF PROTEIN SERUM (04/04/20) BONE MARROW INTERPRETATION (04/04/20) COMPLETE CBC W/AUTO DIFF WBC (04/22/20) COMPREHEN METABOLIC PANEL (04/22/20) CYTOGENETICS DNA PROBE (04/04/20) CYTOPATH FL NONGYN SMEARS (04/04/20) DECALCIFY TISSUE (04/04/20) DX BONE MARROW BIOPSIES (04/04/20) EXTREMITY STUDY (08/29/19) FLOWCYTOMETRY/ TC 1 MARKER (04/04/20) FLOWCYTOMETRY/READ 9-15 (04/04/20) GLYCOSYLATED HEMOGLOBIN TEST (04/04/20) GUIDANCE FOR RADJ TX DLVR (04/22/20) HEP B SURFACE ANTIBODY (04/04/20) HEPATITIS C AB TEST (04/04/20) HIV-1 AG W/HIV-1 & -2 AB AG IA (04/04/20) IMMUNOFIX E-PHORESIS SERUM (04/04/20) LACTATE (LD) (LDH) ENZYME (04/04/20) LOWER EXTREMITY STUDY (08/29/19) OFFICE O/P NEW HI 60-74 MIN (04/22/20) PCV13 VACCINE IM (04/04/20) PET IMAGE W/CT FULL BODY (04/22/20) PROTEIN E-PHORESIS SERUM (04/04/20) RADIATION PHYSICS CONSULT (04/22/20) RADIATION THERAPY DOSE PLAN (04/22/20) RADIATION TREATMENT AID(S) (04/22/20) RADIATION TREATMENT DELIVERY (04/22/20) RADIOLOGY PORT IMAGES(S) (04/22/20) ROUTINE VENIPUNCTURE (04/22/20) SET RADIATION THERAPY FIELD (04/22/20) SET RADIATION THERAPY FIELD (04/22/20) SPECIAL RADIATION DOSIMETRY (04/22/20) SPECIAL STAINS GROUP 1 (04/04/20) THER/PROPH/DIAG IV INF INIT (04/22/20) TISSUE CULTURE BONE MARROW (04/04/20) TISSUE EXAM BY PATHOLOGIST (04/04/20) (1) Diabetic foot ulcer SNOMED Code(s): 193427182 Code(s): E11.621 - TYPE 2 DIABETES MELLITUS WITH FOOT ULCER; L97.509 - NON- PRESSURE CHRONIC ULCER OTH PRT UNSP FOOT W UNSP SEVERITY Current Visit: Yes Qualifiers: Diabetic foot ulcer location: unspecified part of foot Assessment:: MRI impression states erosion consistent with early osteomyelitis seen left fifth metatarsal head and the ulceration is from skin level to bone at that location. Problem List Initiated/Reviewed/Updated: Yes My Orders Last 24 Hours: Patient examined at bedside. Ulcer appears unchanged from 05/23/20 when seen in my office. Scant drainage is noted. Site is cleansed with NSS and non-adherent gauze, conforming gauze roll, and kel bandage is applied. Plan is to wait to see if hypervolemia and hypotension can be improved and delay planned debridement of the ulcer site of left foot until 05/26/20 or following day. Will follow.
[2020-05-25] MEDS: Docusate Sodium 100 MG Cap PO SCH (20:05)
[2020-05-26] MEDS: Sodium Chloride 0.65% Nasal Spray 45 ML Bottle NAS SCH ×5 (01:34→17:33)
[2020-05-26 06:11] LABS: POTASSIUM,K 3.8 mmol/L (3.5-5.1)
[2020-05-26] MEDS: Furosemide 40 MG/4 ML VIAL IVPUSH SCH (06:12)
[2020-05-26 06:14] LABS: CARBON DIOXIDE,CO2 38.8 mmol/L (21.0-32.0)
[2020-05-26] MEDS: Piperacillin/Tazobactam 4.5 GM in Sodium Chloride 0.9% 100 ML IV SCH ×3 (06:26→17:29)
[2020-05-26] MEDS: Insulin Aspart 100 Units/ML 3 ML Pen SUBCUT SCH ×3 (07:09→17:27)
[2020-05-26] MEDS: Budesonide/Formoterol 160-4.5 MCG/Puff 6 GM Inhaler INH SCH (07:43)
[2020-05-26] MEDS: VANCOmycin 2 GM/400 ML 2 GM in Premix Bag 1 BAG IV SCH (08:23)
--- NOTE | 2020-05-26 09:00 | PCM.PN ---
- General Info Date of Service: 05/26/20 - Review of Systems Systems Review Comment:: patient denies any shortness of breath, chest pain, dizziness, or lightheadedness. Patient reports he feels like he is in his usually stat of health and is eager to have his surgery. He is somewhat upset that his surgery was delayed a day. - Patient Data Vitals - Most Recent: Last Vital Signs Temp 37.1 C 05/26/20 08:21 Pulse 84 05/26/20 08:21 Resp 18 05/26/20 08:21 BP 99/59 L 05/26/20 08:21 Pulse Ox 87 L 05/26/20 08:21 Weight - Most Recent: 149.05 kg I&O - Last 24 Hours: Intake & Output 05/25/20 05/26/20 05/26/20 22:59 06:59 14:59 Intake Total 1200 500 Output Total 2400 3530 Balance -1200 -3030 Lab Results Last 24 Hours: Laboratory Results - last 24 hr 05/25/20 05/25/20 05/25/20 Range/Units 05:15 13:48 17:18 WBC (4.0-11.0) K/uL RBC (4.50-5.90) M/uL Hgb (13.0-17.0) g/dL Hct (38.0-50.0) % MCV (80.0-98.0) fL MCH (27.0-32.0) pg MCHC (31.0-37.0) g/dL RDW Std Deviation (28.0-62.0) fl RDW Coeff of Kathy (11.0-15.0) % Plt Count (150-400) K/uL MPV (7.40-12.00) fL Neut % (Auto) (48.0-80.0) % Lymph % (Auto) (16.0-40.0) % [place] % (Auto) (0.0-15.0) % Eos % (Auto) (0.0-7.0) % Baso % (Auto) (0.0-1.5) % Neut # (Auto) (1.4-5.7) K/uL Lymph # (Auto) (0.6-2.4) K/uL [place] # (Auto) (0.0-0.8) K/uL Eos # (Auto) (0.0-0.7) K/uL Baso # (Auto) (0.0-0.1) K/uL Nucleated RBC % /100WBC Nucleated RBCs # K/uL Sodium (136-148) mmol/L Potassium (3.5-5.1) mmol/L Chloride (98-107) mmol/L Carbon Dioxide (21.0-32.0) mmol/L BUN (7.0-18.0) mg/dL Creatinine (0.8-1.3) mg/dL Est Cr Clr Drug Dosing mL/min Estimated GFR (MDRD) ml/min Glucose (74-106) mg/dL POC Glucose 138 H 219 H (60-110) mg/dL Calcium (8.5-10.1) mg/dL Magnesium (1.8-2.4) mg/dL Total Bilirubin (0.2-1.0) mg/dL AST (15-37) IU/L ALT (14-63) IU/L Alkaline Phosphatase (46-116) U/L B-Natriuretic Peptide 122 H (<100) PG/ML Total Protein (6.4-8.2) g/dL Albumin (3.4-5.0) g/dL Globulin (2.6-4.0) g/dL Albumin/Globulin Ratio (0.9-1.6) Vancomycin Trough (5.0-10.0) ug/mL 05/25/20 05/26/20 05/26/20 Range/Units 22:01 05:30 05:30 WBC 4.79 (4.0-11.0) K/uL RBC 4.54 (4.50-5.90) M/uL Hgb 13.4 (13.0-17.0) g/dL Hct 41.8 (38.0-50.0) % MCV 92.1 (80.0-98.0) fL MCH 29.5 (27.0-32.0) pg MCHC 32.1 (31.0-37.0) g/dL RDW Std Deviation 60.7 (28.0-62.0) fl RDW Coeff of Kathy 18 H (11.0-15.0) % Plt Count 173 (150-400) K/uL MPV 8.90 (7.40-12.00) fL Neut % (Auto) 62.2 (48.0-80.0) % Lymph % (Auto) 23.6 (16.0-40.0) % [place] % (Auto) 5.6 (0.0-15.0) % Eos % (Auto) 7.1 H (0.0-7.0) % Baso % (Auto) 1.5 (0.0-1.5) % Neut # (Auto) 3.0 (1.4-5.7) K/uL Lymph # (Auto) 1.1 (0.6-2.4) K/uL [place] # (Auto) 0.3 (0.0-0.8) K/uL Eos # (Auto) 0.3 (0.0-0.7) K/uL Baso # (Auto) 0.1 (0.0-0.1) K/uL Nucleated RBC % 0.0 /100WBC Nucleated RBCs # 0 K/uL Sodium 135 L (136-148) mmol/L Potassium 3.8 (3.5-5.1) mmol/L Chloride 98 (98-107) mmol/L Carbon Dioxide 38.8 H (21.0-32.0) mmol/L BUN 37 H (7.0-18.0) mg/dL Creatinine 1.4 H (0.8-1.3) mg/dL Est Cr Clr Drug Dosing 65.27 mL/min Estimated GFR (MDRD) 51.7 ml/min Glucose 130 H (74-106) mg/dL POC Glucose 179 H (60-110) mg/dL Calcium 8.9 (8.5-10.1) mg/dL Magnesium 1.8 (1.8-2.4) mg/dL Total Bilirubin 1.0 (0.2-1.0) mg/dL AST 14 L (15-37) IU/L ALT 18 (14-63) IU/L Alkaline Phosphatase 139 H (46-116) U/L B-Natriuretic Peptide (<100) PG/ML Total Protein 10.0 H (6.4-8.2) g/dL Albumin 2.3 L (3.4-5.0) g/dL Globulin 7.7 H (2.6-4.0) g/dL Albumin/Globulin Ratio 0.3 L (0.9-1.6) Vancomycin Trough (5.0-10.0) ug/mL 05/26/20 05/26/20 Range/Units 06:32 06:33 WBC (4.0-11.0) K/uL RBC (4.50-5.90) M/uL Hgb (13.0-17.0) g/dL Hct (38.0-50.0) % MCV (80.0-98.0) fL MCH (27.0-32.0) pg MCHC (31.0-37.0) g/dL RDW Std Deviation (28.0-62.0) fl RDW Coeff of Kathy (11.0-15.0) % Plt Count (150-400) K/uL MPV (7.40-12.00) fL Neut % (Auto) (48.0-80.0) % Lymph % (Auto) (16.0-40.0) % [place] % (Auto) (0.0-15.0) % Eos % (Auto) (0.0-7.0) % Baso % (Auto) (0.0-1.5) % Neut # (Auto) (1.4-5.7) K/uL Lymph # (Auto) (0.6-2.4) K/uL [place] # (Auto) (0.0-0.8) K/uL Eos # (Auto) (0.0-0.7) K/uL Baso # (Auto) (0.0-0.1) K/uL Nucleated RBC % /100WBC Nucleated RBCs # K/uL Sodium (136-148) mmol/L Potassium (3.5-5.1) mmol/L Chloride (98-107) mmol/L Carbon Dioxide (21.0-32.0) mmol/L BUN (7.0-18.0) mg/dL Creatinine (0.8-1.3) mg/dL Est Cr Clr Drug Dosing mL/min Estimated GFR (MDRD) ml/min Glucose (74-106) mg/dL POC Glucose 145 H (60-110) mg/dL Calcium (8.5-10.1) mg/dL Magnesium (1.8-2.4) mg/dL Total Bilirubin (0.2-1.0) mg/dL AST (15-37) IU/L ALT (14-63) IU/L Alkaline Phosphatase (46-116) U/L B-Natriuretic Peptide (<100) PG/ML Total Protein (6.4-8.2) g/dL Albumin (3.4-5.0) g/dL Globulin (2.6-4.0) g/dL Albumin/Globulin Ratio (0.9-1.6) Vancomycin Trough 29.5 H (5.0-10.0) ug/mL Med Orders - Current: Current Medications Hydrocodone Bitart/Acetaminophen (Acetaminophen/Hydrocodone 325-10 Mg Tab) 1 tab PO Q4H PRN PRN Reason: Pain Last Admin: 05/25/20 23:16 Dose: 1 tab Documented by: Albuterol (Albuterol 8 Gm Inhaler) 0 gm INH Q4H PRN PRN Reason: Shortness of Breath Albuterol/Ipratropium (Albuterol/Ipratropium 3.0-0.5 Mg/3 Ml Neb Soln) 3 ml NEB Q4HRRT PRN PRN Reason: Dyspnea Last Admin: 05/25/20 06:52 Dose: 3 ml Documented by: Alprazolam (Alprazolam 0.5 Mg Tab) 0.5 mg PO BID PRN PRN Reason: Anxiety Last Admin: 05/24/20 19:13 Dose: 0.5 mg Documented by: Budesonide/Formoterol Fumarate (Budesonide/Formoterol 160-4.5 Mcg/Puff 6 Gm Inhaler) 2 gm INH BIDRT JYOTSNA Last Admin: 05/26/20 07:43 Dose: 2 inhalation Documented by: Dextrose/Water (50% Dextrose In Water 50 Ml Syringe) 50 ml IV ASDIRECTED PRN PRN Reason: Hypoglycemia Docusate Sodium (Docusate Sodium 100 Mg Cap) 200 mg PO BEDTIME [facility] Last Admin: 05/25/20 20:05 Dose: 200 mg Documented by: Furosemide (Furosemide 40 Mg/4 Ml Vial) 60 mg IVPUSH TID [facility] Last Admin: 05/26/20 06:12 Dose: 60 mg Documented by: Glucagon (Glucagon,Human Recombinant 1 Mg Vial) 1 mg IM ASDIRECTED PRN PRN Reason: Hypoglycemia Piperacillin Sod/Tazobactam (Sod 4.5 gm/ Sodium Chloride) 100 mls @ 200 mls/hr IV Q6H [facility] Last Admin: 05/26/20 06:26 Dose: 200 mls/hr Documented by: Vancomycin HCl (Vancomycin 1.5 Gm/300 Ml) 300 mls @ 200 mls/hr IV Q24H [facility] Insulin Aspart (Insulin Aspart 100 Units/Ml 3 Ml Pen) 0 unit SUBCUT TIDAC JYOTSNA; Protocol Last Admin: 05/26/20 07:09 Dose: Not Given Documented by: Insulin Glargine (Insulin Glargine,Human Rec. Analog 100 Units/Ml 3 Ml Pen) 10 units SUBCUT BEDTIME PRN PRN Reason: Hyperglycemia Last Admin: 05/25/20 22:15 Dose: 10 units Documented by: Levothyroxine Sodium (Levothyroxine 112 Mcg Tab) 112 mcg PO ACBREAKFAST [facility] Last Admin: 05/25/20 07:32 Dose: Not Given Documented by: Metolazone (Metolazone 5 Mg Tab) 5 mg PO DAILY [facility] Last Admin: 05/25/20 07:59 Dose: Not Given Documented by: Potassium Chloride (Potassium Chloride 10 Meq Tab.Er) 10 meq PO DAILY [facility] Last Admin: 05/25/20 10:09 Dose: 10 meq Documented by: Sodium Chloride (Sodium Chloride 0.65% Nasal Kathryn 45 Ml Bottle) 1 ml PAULA Q4H [facility] Last Admin: 05/26/20 06:13 Dose: 2 sprays Documented by: Vancomycin HCl (Pharmacy To Dose - Vancomycin) 1 dose .XX ASDIRECTED [facility] Discontinued Medications Furosemide (Furosemide 40 Mg Tab) 40 mg PO BIDDIURETIC [facility] Last Admin: 05/25/20 07:59 Dose: Not Given Documented by: Furosemide (Furosemide 40 Mg/4 Ml Vial) 40 mg IVPUSH NOW ONE Stop: 05/25/20 06:18 Last Admin: 05/25/20 06:41 Dose: 40 mg Documented by: Furosemide (Furosemide 20 Mg/2 Ml Vial) 60 mg IVPUSH DAILY [facility] Vancomycin HCl 2 gm/ Premix 400 mls @ 200 mls/hr IV Q12H [facility] Last Admin: 05/26/20 08:23 Dose: Not Given Documented by: Budesonide/Formoterol 160-4.5 Mcg/Puff 6 Gm Inhaler 2 each INH BIDRT JYOTSNA Last Admin: 05/25/20 07:00 Dose: Not Given Documented by: Lenalidomide [ Revlimid] 15 Mg Capsule 1 each PO DAILY JYOTSNA - Exam General: Alert, Oriented Neck: Supple Lungs: Clear to Auscultation, Normal Respiratory Effort Cardiovascular: Regular Rate, Regular Rhythm GI/Abdominal Exam: Soft, Non-Tender, No Distention Skin: Warm, Dry, Intact Neurological: No New Focal Deficit - Patient Data Lab Results Last 24 hrs: Laboratory Results - last 24 hr 05/25/20 05/25/20 05/25/20 Range/Units 05:15 13:48 17:18 WBC (4.0-11.0) K/uL RBC (4.50-5.90) M/uL Hgb (13.0-17.0) g/dL Hct (38.0-50.0) % MCV (80.0-98.0) fL MCH (27.0-32.0) pg MCHC (31.0-37.0) g/dL RDW Std Deviation (28.0-62.0) fl RDW Coeff of Kathy (11.0-15.0) % Plt Count (150-400) K/uL MPV (7.40-12.00) fL Neut % (Auto) (48.0-80.0) % Lymph % (Auto) (16.0-40.0) % Hudson % (Auto) (0.0-15.0) % Eos % (Auto) (0.0-7.0) % Baso % (Auto) (0.0-1.5) % Neut # (Auto) (1.4-5.7) K/uL Lymph # (Auto) (0.6-2.4) K/uL Hudson # (Auto) (0.0-0.8) K/uL Eos # (Auto) (0.0-0.7) K/uL Baso # (Auto) (0.0-0.1) K/uL Nucleated RBC % /100WBC Nucleated RBCs # K/uL Sodium (136-148) mmol/L Potassium (3.5-5.1) mmol/L Chloride (98-107) mmol/L Carbon Dioxide (21.0-32.0) mmol/L BUN (7.0-18.0) mg/dL Creatinine (0.8-1.3) mg/dL Est Cr Clr Drug Dosing mL/min Estimated GFR (MDRD) ml/min Glucose (74-106) mg/dL POC Glucose 138 H 219 H (60-110) mg/dL Calcium (8.5-10.1) mg/dL Magnesium (1.8-2.4) mg/dL Total Bilirubin (0.2-1.0) mg/dL AST (15-37) IU/L ALT (14-63) IU/L Alkaline Phosphatase (46-116) U/L B-Natriuretic Peptide 122 H (<100) PG/ML Total Protein (6.4-8.2) g/dL Albumin (3.4-5.0) g/dL Globulin (2.6-4.0) g/dL Albumin/Globulin Ratio (0.9-1.6) Vancomycin Trough (5.0-10.0) ug/mL 05/25/20 05/26/20 05/26/20 Range/Units 22:01 05:30 05:30 WBC 4.79 (4.0-11.0) K/uL RBC 4.54 (4.50-5.90) M/uL Hgb 13.4 (13.0-17.0) g/dL Hct 41.8 (38.0-50.0) % MCV 92.1 (80.0-98.0) fL MCH 29.5 (27.0-32.0) pg MCHC 32.1 (31.0-37.0) g/dL RDW Std Deviation 60.7 (28.0-62.0) fl RDW Coeff of Kathy 18 H (11.0-15.0) % Plt Count 173 (150-400) K/uL MPV 8.90 (7.40-12.00) fL Neut % (Auto) 62.2 (48.0-80.0) % Lymph % (Auto) 23.6 (16.0-40.0) % Hudson % (Auto) 5.6 (0.0-15.0) % Eos % (Auto) 7.1 H (0.0-7.0) % Baso % (Auto) 1.5 (0.0-1.5) % Neut # (Auto) 3.0 (1.4-5.7) K/uL Lymph # (Auto) 1.1 (0.6-2.4) K/uL Hudson # (Auto) 0.3 (0.0-0.8) K/uL Eos # (Auto) 0.3 (0.0-0.7) K/uL Baso # (Auto) 0.1 (0.0-0.1) K/uL Nucleated RBC % 0.0 /100WBC Nucleated RBCs # 0 K/uL Sodium 135 L (136-148) mmol/L Potassium 3.8 (3.5-5.1) mmol/L Chloride 98 (98-107) mmol/L Carbon Dioxide 38.8 H (21.0-32.0) mmol/L BUN 37 H (7.0-18.0) mg/dL Creatinine 1.4 H (0.8-1.3) mg/dL Est Cr Clr Drug Dosing 65.27 mL/min Estimated GFR (MDRD) 51.7 ml/min Glucose 130 H (74-106) mg/dL POC Glucose 179 H (60-110) mg/dL Calcium 8.9 (8.5-10.1) mg/dL Magnesium 1.8 (1.8-2.4) mg/dL Total Bilirubin 1.0 (0.2-1.0) mg/dL AST 14 L (15-37) IU/L ALT 18 (14-63) IU/L Alkaline Phosphatase 139 H (46-116) U/L B-Natriuretic Peptide (<100) PG/ML Total Protein 10.0 H (6.4-8.2) g/dL Albumin 2.3 L (3.4-5.0) g/dL Globulin 7.7 H (2.6-4.0) g/dL Albumin/Globulin Ratio 0.3 L (0.9-1.6) Vancomycin Trough (5.0-10.0) ug/mL 05/26/20 05/26/20 Range/Units 06:32 06:33 WBC (4.0-11.0) K/uL RBC (4.50-5.90) M/uL Hgb (13.0-17.0) g/dL Hct (38.0-50.0) % MCV (80.0-98.0) fL MCH (27.0-32.0) pg MCHC (31.0-37.0) g/dL RDW Std Deviation (28.0-62.0) fl RDW Coeff of Kathy (11.0-15.0) % Plt Count (150-400) K/uL MPV (7.40-12.00) fL Neut % (Auto) (48.0-80.0) % Lymph % (Auto) (16.0-40.0) % Hudson % (Auto) (0.0-15.0) % Eos % (Auto) (0.0-7.0) % Baso % (Auto) (0.0-1.5) % Neut # (Auto) (1.4-5.7) K/uL Lymph # (Auto) (0.6-2.4) K/uL Hudson # (Auto) (0.0-0.8) K/uL Eos # (Auto) (0.0-0.7) K/uL Baso # (Auto) (0.0-0.1) K/uL Nucleated RBC % /100WBC Nucleated RBCs # K/uL Sodium (136-148) mmol/L Potassium (3.5-5.1) mmol/L Chloride (98-107) mmol/L Carbon Dioxide (21.0-32.0) mmol/L BUN (7.0-18.0) mg/dL Creatinine (0.8-1.3) mg/dL Est Cr Clr Drug Dosing mL/min Estimated GFR (MDRD) ml/min Glucose (74-106) mg/dL POC Glucose 145 H (60-110) mg/dL Calcium (8.5-10.1) mg/dL Magnesium (1.8-2.4) mg/dL Total Bilirubin (0.2-1.0) mg/dL AST (15-37) IU/L ALT (14-63) IU/L Alkaline Phosphatase (46-116) U/L B-Natriuretic Peptide (<100) PG/ML Total Protein (6.4-8.2) g/dL Albumin (3.4-5.0) g/dL Globulin (2.6-4.0) g/dL Albumin/Globulin Ratio (0.9-1.6) Vancomycin Trough 29.5 H (5.0-10.0) ug/mL Result Diagrams: 05/26/20 05:30 05/26/20 05:30 Sepsis Event Note - Evaluation Sepsis Screening Result: No Definite Risk - Focused Exam Vital Signs: Vital Signs Temp Pulse Resp BP Pulse Ox 05/26/20 08:21 37.1 C 84 18 99/59 L 87 L 05/26/20 06:10 83 101/60 05/26/20 05:00 90 L 05/26/20 03:44 36.8 C 92 18 104/62 88 L 05/26/20 01:35 37.0 C 95 18 94/58 L 88 L 05/25/20 22:05 36.6 C 90 18 99/62 88 L - Problem List Review Problem List Initiated/Reviewed/Updated: Yes - My Orders Last 24 Hours: My Active Orders 05/27/20 09:00 VANCOmycin 1.5 GM/300 ML 300 ml IV Q24H - Plan Plan:: 60 yo male with CHF, DM, admitted for diabetic foot ulcer CHF Switched to TID IV lasix yesterday. O2 NC is at 5-6 liters which patient states is his baseline. Will place back on PO lasix Diabetic left foot ulcer/osteomyolitis-vancomycin, Zosyn every [address] Kim plans on taking to OR today for debridement. Patient at moderate to high risk for perioperative complications but do not think further delay would yield improved risks for surgery. Diabetessliding scale insulin moderate, diabetic diet. Lantus 10 units as needed bedtime if blood glucose levels are at or above 150. Resume home medications for hypertension, CHF, COPD, hypothyroidism. DVT prophylaxis, SCD. Nicotine patch 14 mg resume post surgery, Telemetry, Daily weight, strict I&O
[2020-05-26] MEDS ORDERED: Bupivacaine 0.5% 30 ML SDV ONE (09:03)
[2020-05-26] MEDS ORDERED: Lidocaine 1% 50 ML MDV ONE (09:03)
--- NOTE | 2020-05-26 10:34 | PN ---
The patient is a 60-year-old male. PLANNED PROCEDURE: Debridement to bone of ulcer, left foot. ANESTHESIA: Local. There will be no hemostasis, no tourniquet. The patient is an obese poorly controlled diabetic male, uncontrolled diabetes; congestive heart failure; COPD; hypothyroidism, hypertension, multiple myeloma. ALLERGIES: He has no known allergies. OUTPATIENT MEDICATIONS: [place] 10/325 mg 1 tablet by mouth every 4 hours as needed for pain; losartan potassium tablet 50 mg 1 tablet by mouth daily; alprazolam 0.5 mg 1 tablet by mouth twice a day as needed; furosemide 40 mg 1 tablet by mouth twice a day; potassium 1 tablet by mouth daily; levothyroxine 112 mcg 1 tablet by mouth daily; ipratropium solution, albuterol inhale 1 vial using the nebulizer 3 times a day; Symbicort 160-4.5 inhale 2 puffs by mouth twice a day; metolazone 5 mg take 1 tablet by mouth daily; doxycycline 100 mg 1 tablet by mouth twice a day; basaglar injection 100 units, inject 60 units subcutaneously daily; and prednisone 20 mg 1 tablet by mouth 3 times a day as needed. The patient had a chest x-ray which showed some atelectasis, scarring, and increased vascularity consistent with congestion but was otherwise normal. and EKG. These studies have been reviewed, and the patient has been cleared for surgery by Dr. Toussaint. However, we will be limiting anesthesia to local anesthesia due to patient's hypervolemia and especially his hypotension. All of patient's questions have been asked and answered. Risks and benefits of surgery have been discussed with the patient, and the patient has consented in writing for surgery, debridement to bone of the ulcer of the left foot and MRI has revealed early osteomyelitis with erosion at the plantar aspect of the fifth metatarsal head consistent with location of ulcer, left foot. SLANGUY / MODL /[id number] MTDPravin
--- NOTE | 2020-05-26 10:35 | PCM.POSTAN ---
POST ANESTHESIA ASSESSMENT - MENTAL STATUS Mental Status: Alert - VITAL SIGNS Vital Signs: Last Vital Signs Temp 36.9 C 05/26/20 10:09 Pulse 89 05/26/20 10:24 Resp 15 05/26/20 10:24 BP 106/67 05/26/20 10:24 Pulse Ox 89 L 05/26/20 10:24 - RESPIRATORY Respiratory Status: O2 Saturation Stable, Supplemental Oxygen - CARDIOVASCULAR CV Status: Pulse Rate WNL - GASTROINTESTINAL GI Status: No Symptoms - POST OP HYDRATION Hydration Status: Adequate & Stable
[2020-05-26] MEDS: Potassium Chloride 10 MEQ Tab.ER PO SCH (10:49)
[2020-05-26] MEDS: Levothyroxine 112 MCG Tab PO SCH (10:49)
[2020-05-26] MEDS: Metolazone 5 MG Tab PO SCH (10:49)
[2020-05-26] MEDS: Acetaminophen/HYDROcodone 325-10 MG Tab PO PRN ×2 (10:50→16:03)
--- NOTE | 2020-05-26 12:48 | OR ---
SURGEON: Vish Kim DPM DATE OF PROCEDURE: 05/26/2020 PRIMARY SURGEON: Vish Kim DPM PREOPERATIVE DIAGNOSIS: Ulcer to bone with early osteomyelitis, left foot. POSTOPERATIVE DIAGNOSIS: Ulcer to bone with early osteomyelitis, left foot. PLANNED PROCEDURE: Debridement to bone of ulcer, left foot. ANESTHESIA: Local consisting of 10 mL of 1% lidocaine plain infiltrated to the surgical site in the area of the sub 5th metatarsal head of the left foot. HEMOSTASIS: None. PATHOLOGY: Soft tissue with potentially degraded bone removed from the sub 5th metatarsal site of the left foot, sent to Pathology for gross and histologic examination. Cultures were taken including anaerobic, aerobic, and Gram stain. ESTIMATED BLOOD LOSS: 10 mL. JUSTIFICATION FOR THE PROCEDURE: The patient is a 60-year-old male who was admitted for the left foot diabetic ulcer for purposes of debridement and stabilization with noted hypotension and hypervolemia to bilateral lower extremities. The patient is also being treated for multiple myeloma, recently completed a course of radiation treatment and is soon to begin chemotherapy treatment once he is discharged. He was admitted to the floor and placed on IV antibiotics and worked up for surgery. The patient was to have this procedure done yesterday, however, primarily due to his hypotension and shortness of breath, surgery was delayed until now. The patient is deemed stable to proceed with surgery under local anesthesia today. All patient questions have been asked and answered. No guarantees have been expressed or implied. Risks and benefits have been fully discussed and written consent has been obtained for debridement to bone of the diabetic ulcer, left foot. PROCEDURE IN DETAIL: The patient was brought to the operating room, placed on the operating table in a supine position, at which time an aseptic scrub and drape was performed about the patient's left lower extremity. Anesthesia was limited to local anesthesia with V block injection of 10 mL of 1% lidocaine plain which was sufficient to achieve anesthesia at the surgical site. Time-out was performed prior to injection of the anesthesia and the correct planned procedure and location were verified with all present agreeing. Procedure began with sharp debridement of the necrotic tissue from the open wound which measures approximately 1.5 cm in diameter and probes directly to bone through the degraded necrotic and fibrotic soft tissue. Debridement continued with removal of necrotic and loose portions of subcutaneous fat and tendon until bone was reached. A small curette was used to curette the bone and to probe it. No readily removable bone material was identified. Gram stain, aerobic, and anaerobic swab cultures were taken with penetration to the bone. However, I did not choose to remove any substantial portion of bone for culture as I do not want to compromise the patient's integrity any further. The MRI did confirm the erosion which was also seen and palpated at the small area of sub 5th metatarsal head, left foot. The goal is to be able to salvage the 5th metatarsal head and avoid having to amputate the 5th toe and 5th metatarsal which would be at least to mid shaft or base of the 5th metatarsal if it did have to be performed and we have a chance here to stop this with the debridement. The patient will need to maintain antibiotics after discharge as well. He will continue IV and then switch to oral antibiotics upon discharge. Prior to the debridement of bone, x- rays were taken intraoperative and following debridement of bone, postoperative x-rays were taken. The area was flushed with normal sterile saline in copious amounts, reinspected, and there being no more necrotic tissue to remove, was packed with quarter-inch iodoform packing followed by Xeroform gauze soaked with Betadine and layers of fluff gauze. The postoperative injection of 7 mL of 0.5% Marcaine plain was given to provide postoperative anesthesia for a period of several hours in the surgical site. After application of Kerlix roll, an Moy bandage was applied and the procedure was concluded. The patient will be returned to his room and monitored, and Dr. Toussaint may be able to have a discussion with the oncologist regarding timing of the discharge. The patient is eager to be discharged as early as today. He is stable in the foot. However, it would be beneficial if we are able to diurese the patient further and more optimally stabilize him prior to discharge, and for that reason, he is likely to remain, at least overnight. HANNAH / RADHA /[id number] PERRY
[2020-05-26] MEDS: Heparin Sodium 5,000 Units/ML Vial SUBCUT SCH (13:34)
[2020-05-26] MEDS: Furosemide 80 MG Tab PO SCH (13:35)
--- NOTE | 2020-05-26 15:19 | PCM.OPNOTE ---
- General Post-Op/Procedure Note Date of Surgery/Procedure: 05/26/20 Operative Procedure(s): debridement to bone ulcer left foot Findings: consistent with diagnosis Pre Op Diagnosis: diabetic ulcer to bone with early osteomyelitis left foot Post-Op Diagnosis: diabetic ulcer to bone with early osteomyelitis left foot Anesthesia Technique: Local (10 ml 1% lidocaine plain) Primary Surgeon: Vish Kim Pathology: soft tissue left foot ulcer EBL in mLs: 10 Condition: Good Free Text/Narrative:: Intake & Output 05/26/20 05/26/20 05/26/20 06:59 14:59 22:59 Intake Total 500 200 Output Total 3530 600 Balance -3030 -400 injectables: 7 ml 0.5% marcaine plain materials: quarter inch iodoform packing swab cultures taken
[2020-05-27] MEDS: Sodium Chloride 0.65% Nasal Spray 45 ML Bottle NAS SCH ×2 (03:03→06:10)
[2020-05-27] MEDS: Budesonide/Formoterol 160-4.5 MCG/Puff 6 GM Inhaler INH SCH (05:49)
[2020-05-27] MEDS: Piperacillin/Tazobactam 4.5 GM in Sodium Chloride 0.9% 100 ML IV SCH (06:06)
[2020-05-27] MEDS: Heparin Sodium 5,000 Units/ML Vial SUBCUT SCH (06:08)
[2020-05-27] MEDS: Levothyroxine 112 MCG Tab PO SCH (06:50)
[2020-05-27] MEDS: Acetaminophen/HYDROcodone 325-10 MG Tab PO PRN (06:54)
[2020-05-27] MEDS ORDERED: VANCOmycin 1.5 GM/300 ML 300 ML IV SCH (09:00)
[2020-05-27] MEDS: Metolazone 5 MG Tab PO SCH (09:24)
[2020-05-27] MEDS: Potassium Chloride 10 MEQ Tab.ER PO SCH (09:24)
[2020-05-27] MEDS: Furosemide 80 MG Tab PO SCH (09:25)
[2020-05-27] MEDS: Insulin Aspart 100 Units/ML 3 ML Pen SUBCUT SCH (09:31)
--- NOTE | 2020-05-27 09:33 | PCM48HPAN ---
Post Anesthesia Note - EVALUATION WITHIN 48HRS OF ANESTHETIC Vital Signs in Normal Range: Yes Patient Participated in Evaluation: Yes Respiratory Function Stable: Yes Airway Patent: Yes Cardiovascular Function Stable: Yes Hydration Status Stable: Yes Pain Control Satisfactory: Yes Nausea and Vomiting Control Satisfactory: Yes Mental Status Recovered: Yes Vital Signs: Last Vital Signs Temp 36.4 C 05/27/20 03:30 Pulse 93 05/27/20 03:30 Resp 18 05/27/20 03:30 BP 107/66 05/27/20 03:30 Pulse Ox 89 L 05/27/20 03:30 - COMMENTS/OBSERVATIONS Free Text/Narrative:: patient is doing well post surgery
[2020-05-27 09:56] LABS: CARBON DIOXIDE,CO2 37.1 mmol/L (21.0-32.0); POTASSIUM,K 3.5 mmol/L (3.5-5.1)
--- NOTE | 2020-05-27 14:21 | PCM.DCSUM1 ---
<Gavin Soto - Last Filed: 05/27/20 15:07> Discharge Summary - Hospital Course Free Text/Narrative:: 60-year-old male direct admission to the medical floor for preop for left foot diabetic ulcer debridement due to early osteomyelitis with soft tissue infection. Patient admitted to the medical floor for IV antibiotics and preop work-up for surgery which was performed on 05-26-20. Patient states past medical history to include hypertension, CHF, diabetes, COPD (3-4 L oxygen requirement at home), hypothyroidism, multiple myeloma with treatment to begin this coming Wednesday with lenalidomide. [facility] Patient started on IV vancomycin and Zosyn, n.p.o. after midnight. Patient's procedure was scheduled to be on 05-25-20 but due to patient's history of CHF and concerns of pulmonary edema aggressive treatment with IV Lasix, 60 mg IV TID times daily, was started on Wednesday. Debridement to bone of ulcer, left foot performed by Dr Kim with no complications on 05-27-20. Patient discharged on levofloxacin and linezolid antibiotics for 14 days. Patient's oncology team [facility] was contacted for antibiotic coverage. Oncology had no concerns with patient being placed on linezolid antibiotic. Patient stated that he would make his own appointment to follow-up with his primary care physician in [place], patient advised to perform daily weights and advise PCP any increase in weight. Patient also advised to consume a low sodium diet. Patient to follow-up with oncology as needed for chemotherapy treatment of multiple myeloma. Patient was provided portable home oxygen for his travel from [facility] to his home in [place] where patient states he does have a home oxygen concentrator. Patient was evaluated by physical therapy, recommendation was made for patient to use crutches or front wheel walker with heel walking. Patient states he has a walker at home that he can use if needed. Patient to resume all home medications and discuss any medication changes with PCP. - Discharge Data Discharge Date: 05/27/20 Discharge Disposition: Home, Self-Care 01 Condition: Good - Referral to Home Health Primary Care Physician: Sommer De La O NP - Discharge Diagnosis/Problem(s) (1) Diabetic foot ulcer SNOMED Code(s): 996949218 ICD Code: E11.621 - TYPE 2 DIABETES MELLITUS WITH FOOT ULCER; L97.509 - NON- PRESSURE CHRONIC ULCER OTH PRT UNSP FOOT W UNSP SEVERITY Status: Acute Qualifiers: Diabetic foot ulcer location: unspecified part of foot (2) COPD (chronic obstructive pulmonary disease) SNOMED Code(s): 97633361 ICD Code: J44.9 - CHRONIC OBSTRUCTIVE PULMONARY DISEASE, UNSPECIFIED Status: Acute (3) HTN (hypertension) SNOMED Code(s): 01776575 ICD Code: I10 - ESSENTIAL (PRIMARY) HYPERTENSION Status: Acute (4) Type 2 diabetes mellitus SNOMED Code(s): 38358201 ICD Code: E11.9 - TYPE 2 DIABETES MELLITUS WITHOUT COMPLICATIONS Status: Acute (5) Multiple myeloma SNOMED Code(s): 279438143 ICD Code: C90.00 - MULTIPLE MYELOMA NOT HAVING ACHIEVED REMISSION Status: Acute (6) CHF (congestive heart failure) SNOMED Code(s): 06043635 ICD Code: I50.9 - HEART FAILURE, UNSPECIFIED Status: Acute (7) Hypothyroid SNOMED Code(s): 46069806 ICD Code: E03.9 - HYPOTHYROIDISM, UNSPECIFIED Status: Acute - Patient Summary/Data Operative Procedure(s) Performed: debridement to bone ulcer left foot Consults: Consultations 05/25/20 17:29 Consult to Physician [CONS] Routine 05/27/20 09:43 Consult to Physical Therapy [PT Evaluation and Treatment] [CONS] Routine - Patient Instructions Diet: Low Sodium (2 grams or less daily. Reassess dietary changes with PCP) Activity: As Tolerated Showering/Bathing: May Shower Notify Provider of: Fever, Increased Pain, Swelling and Redness, Drainage, Nausea and/or Vomiting Other/Special Instructions: Patient states they will make follow up appointment with their PCP. Patient advised to weigh themselves daily and report an increase in weight to PCP. Patient advised to follow low sodium diet. Discuss diet with PCP - Discharge Plan Prescriptions/Med Rec: levoFLOXacin [Levaquin] 750 mg PO DAILY 14 Days #14 tab Linezolid [Zyvox] 600 mg PO Q12H 14 Days #28 tab Home Medications: Home Meds ALPRAZolam [Alprazolam] 0.5 mg PO BID PRN 05/24/20 [History] Acetaminophen/HYDROcodone [Irvona 325-10 MG] 1 tab PO Q4H PRN 05/24/20 [History] Albuterol [Take Home: Albuterol 18 GM, 1 INH Pack] 2 inh IH Q4H PRN 05/24/20 [History] Budesonide/Formoterol [Symbicort 160-4.5 MCG] 2 inh IH BID 05/24/20 [History] Docusate Sodium [Colace] 200 mg PO BEDTIME 05/24/20 [History] Doxycycline [Vibra-Tabs] 100 mg PO Q12HR 05/24/20 [History] Furosemide 40 mg PO BID 05/24/20 [History] Hydrocodone/Acetaminophen [Hydrocodone-Acetamin 10-325 mg] 1 each PO Q4HR PRN 05/24/20 [History] Insulin Glargine,Hum.Rec.Anlog [Basaglar Kwikpen U-100] 60 unit SQ 05/24/20 [History] Insulin Glargine,Hum.Rec.Anlog [Basaglar Kwikpen U-100] 60 unit SUBCUT DAILY 05/24/20 [History] Ipratropium/Albuterol Sulfate [Iprat-Albut 0.5-3(2.5) mg/3 ml] 3 ml PO TID 05/24/20 [History] Lenalidomide [Revlimid] 15 mg PO .DAILY X 21 DAYS 05/24/20 [History] Levothyroxine 112 mcg PO ACBREAKFAST 05/24/20 [History] Losartan [Cozaar] 50 mg PO DAILY 05/24/20 [History] Potassium Chloride 10 meq PO DAILY 05/24/20 [History] cephALEXin [Cephalexin] 500 mg PO Q6HR 05/24/20 [History] metOLazone [Metolazone] 5 mg PO DAILY 05/24/20 [History] predniSONE [predniSONE 5 MG/5 ML] 20 mg PO 05/24/20 [History] Linezolid [Zyvox] 600 mg PO Q12H 14 Days #28 tab 05/27/20 [Rx] levoFLOXacin [Levaquin] 750 mg PO DAILY 14 Days #14 tab 05/27/20 [Rx] Patient Handouts: Type 2 Diabetes Mellitus, Diagnosis, Adult, Diabetes Mellitus and Foot Care, Chronic Obstructive Pulmonary Disease, [id number] Referrals: Vish Kim DPM [Physician] - 06/06/20 4:30 pm (Followup in clinic Thursday, May 28, 2020.) - Discharge Summary/Plan Comment DC Time >30 min.: Yes - General Info Date of Service: 05/27/20 Subjective Update: Patient extremely anxious this morning and would like to go home today. Patient denied chest pain, shortness of breath, headache, fever, chills, nausea, vomiting. Patient did not complain of any left foot pain post debridement procedure. - Review of Systems General: Denies: Fever, Chills Pulmonary: Denies: Shortness of Breath, Cough Cardiovascular: Denies: Chest Pain, Dyspnea on Exertion Gastrointestinal: Denies: Abdominal Pain, Nausea, Vomiting Neurological: Denies: Confusion, Dizziness Psychiatric: Denies: Confusion - Patient Data Vitals - Most Recent: Last Vital Signs Temp 97.9 F 05/27/20 09:40 Pulse 88 05/27/20 09:40 Resp 14 05/27/20 09:40 BP 110/70 05/27/20 09:40 Pulse Ox 85 L 05/27/20 09:40 Weight - Most Recent: 146.782 kg I&O - Last 24 hours: Intake & Output 05/26/20 05/27/20 05/27/20 22:59 06:59 14:59 Intake Total 820 550 Output Total 2410 1840 Balance -1590 -1290 Lab Results - Last 24 hrs: Laboratory Results - last 24 hr 05/26/20 05/26/20 05/27/20 Range/Units 17:25 22:16 06:48 WBC (4.0-11.0) K/uL RBC (4.50-5.90) M/uL Hgb (13.0-17.0) g/dL Hct (38.0-50.0) % MCV (80.0-98.0) fL MCH (27.0-32.0) pg MCHC (31.0-37.0) g/dL RDW Std Deviation (28.0-62.0) fl RDW Coeff of Kathy (11.0-15.0) % Plt Count (150-400) K/uL MPV (7.40-12.00) fL Neut % (Auto) (48.0-80.0) % Lymph % (Auto) (16.0-40.0) % [place] % (Auto) (0.0-15.0) % Eos % (Auto) (0.0-7.0) % Baso % (Auto) (0.0-1.5) % Neut # (Auto) (1.4-5.7) K/uL Lymph # (Auto) (0.6-2.4) K/uL [place] # (Auto) (0.0-0.8) K/uL Eos # (Auto) (0.0-0.7) K/uL Baso # (Auto) (0.0-0.1) K/uL Nucleated RBC % /100WBC Nucleated RBCs # K/uL Sodium (136-148) mmol/L Potassium (3.5-5.1) mmol/L Chloride (98-107) mmol/L Carbon Dioxide (21.0-32.0) mmol/L BUN (7.0-18.0) mg/dL Creatinine (0.8-1.3) mg/dL Est Cr Clr Drug Dosing mL/min Estimated GFR (MDRD) ml/min Glucose (74-106) mg/dL POC Glucose 151 H 186 H 148 H (60-110) mg/dL Calcium (8.5-10.1) mg/dL Phosphorus (2.6-4.7) mg/dL Magnesium (1.8-2.4) mg/dL Total Bilirubin (0.2-1.0) mg/dL AST (15-37) IU/L ALT (14-63) IU/L Alkaline Phosphatase (46-116) U/L Total Protein (6.4-8.2) g/dL Albumin (3.4-5.0) g/dL Globulin (2.6-4.0) g/dL Albumin/Globulin Ratio (0.9-1.6) 05/27/20 05/27/20 05/27/20 Range/Units 08:38 08:38 09:27 WBC 4.60 (4.0-11.0) K/uL RBC 4.79 (4.50-5.90) M/uL Hgb 13.9 (13.0-17.0) g/dL Hct 43.7 (38.0-50.0) % MCV 91.2 (80.0-98.0) fL MCH 29.0 (27.0-32.0) pg MCHC 31.8 (31.0-37.0) g/dL RDW Std Deviation 60.1 (28.0-62.0) fl RDW Coeff of Kathy 18 H (11.0-15.0) % Plt Count 182 (150-400) K/uL MPV 9.20 (7.40-12.00) fL Neut % (Auto) 64.3 (48.0-80.0) % Lymph % (Auto) 22.8 (16.0-40.0) % [place] % (Auto) 5.7 (0.0-15.0) % Eos % (Auto) 6.1 (0.0-7.0) % Baso % (Auto) 1.1 (0.0-1.5) % Neut # (Auto) 3.0 (1.4-5.7) K/uL Lymph # (Auto) 1.1 (0.6-2.4) K/uL [place] # (Auto) 0.3 (0.0-0.8) K/uL Eos # (Auto) 0.3 (0.0-0.7) K/uL Baso # (Auto) 0.1 (0.0-0.1) K/uL Nucleated RBC % 0.0 /100WBC Nucleated RBCs # 0 K/uL Sodium 134 L (136-148) mmol/L Potassium 3.5 (3.5-5.1) mmol/L Chloride 95 L (98-107) mmol/L Carbon Dioxide 37.1 H (21.0-32.0) mmol/L BUN 32 H (7.0-18.0) mg/dL Creatinine 1.4 H (0.8-1.3) mg/dL Est Cr Clr Drug Dosing 65.27 mL/min Estimated GFR (MDRD) 51.7 ml/min Glucose 131 H (74-106) mg/dL POC Glucose 154 H (60-110) mg/dL Calcium 9.0 (8.5-10.1) mg/dL Phosphorus 3.9 (2.6-4.7) mg/dL Magnesium 1.8 (1.8-2.4) mg/dL Total Bilirubin 1.1 H (0.2-1.0) mg/dL AST 16 (15-37) IU/L ALT 18 (14-63) IU/L Alkaline Phosphatase 132 H (46-116) U/L Total Protein 10.3 H (6.4-8.2) g/dL Albumin 2.4 L (3.4-5.0) g/dL Globulin 7.9 H (2.6-4.0) g/dL Albumin/Globulin Ratio 0.3 L (0.9-1.6) ANJELICA Results - Last 24 hrs: Microbiology 05/26/20 09:25 Gram Stain - Final Foot, Left Med Orders - Current: Current Medications Hydrocodone Bitart/Acetaminophen (Acetaminophen/Hydrocodone 325-10 Mg Tab) 1 tab PO Q4H PRN PRN Reason: Pain Last Admin: 05/27/20 06:54 Dose: 1 tab Documented by: Albuterol (Albuterol 8 Gm Inhaler) 0 gm INH Q4H PRN PRN Reason: Shortness of Breath Albuterol/Ipratropium (Albuterol/Ipratropium 3.0-0.5 Mg/3 Ml Neb Soln) 3 ml NEB Q4HRRT PRN PRN Reason: Dyspnea Last Admin: 05/25/20 06:52 Dose: 3 ml Documented by: Alprazolam (Alprazolam 0.5 Mg Tab) 0.5 mg PO BID PRN PRN Reason: Anxiety Last Admin: 05/24/20 19:13 Dose: 0.5 mg Documented by: Budesonide/Formoterol Fumarate (Budesonide/Formoterol 160-4.5 Mcg/Puff 6 Gm Inhaler) 2 gm INH BIDRT JYOTSNA Last Admin: 05/27/20 05:49 Dose: 2 inhalation Documented by: Dextrose/Water (50% Dextrose In Water 50 Ml Syringe) 50 ml IV ASDIRECTED PRN PRN Reason: Hypoglycemia Docusate Sodium (Docusate Sodium 100 Mg Cap) 200 mg PO BEDTIME [facility] Last Admin: 05/25/20 20:05 Dose: 200 mg Documented by: Furosemide (Furosemide 80 Mg Tab) 80 mg PO BIDDIURETIC [facility] Last Admin: 05/27/20 09:25 Dose: 80 mg Documented by: Glucagon (Glucagon,Human Recombinant 1 Mg Vial) 1 mg IM ASDIRECTED PRN PRN Reason: Hypoglycemia Heparin Sodium (Porcine) (Heparin Sodium 5,000 Units/Ml Vial) 5,000 units SUBCUT Q8H [facility] Last Admin: 05/27/20 06:08 Dose: 5,000 units Documented by: Piperacillin Sod/Tazobactam (Sod 4.5 gm/ Sodium Chloride) 100 mls @ 200 mls/hr IV Q6H [facility] Last Admin: 05/27/20 06:06 Dose: 200 mls/hr Documented by: Vancomycin HCl (Vancomycin 1.5 Gm/300 Ml) 300 mls @ 200 mls/hr IV Q24H [facility] Last Admin: 05/27/20 09:30 Dose: 200 mls/hr Documented by: Insulin Aspart (Insulin Aspart 100 Units/Ml 3 Ml Pen) 0 unit SUBCUT TIDAC [facility]; Protocol Last Admin: 05/27/20 09:31 Dose: 2 unit Documented by: Insulin Glargine (Insulin Glargine,Human Rec. Analog 100 Units/Ml 3 Ml Pen) 10 units SUBCUT BEDTIME PRN PRN Reason: Hyperglycemia Last Admin: 05/25/20 22:15 Dose: 10 units Documented by: Levothyroxine Sodium (Levothyroxine 112 Mcg Tab) 112 mcg PO ACBREAKFAST [facility] Last Admin: 05/27/20 06:50 Dose: 112 mcg Documented by: Metolazone (Metolazone 5 Mg Tab) 5 mg PO DAILY [facility] Last Admin: 05/27/20 09:24 Dose: 5 mg Documented by: Potassium Chloride (Potassium Chloride 10 Meq Tab.Er) 10 meq PO DAILY [facility] Last Admin: 05/27/20 09:24 Dose: 10 meq Documented by: Sodium Chloride (Sodium Chloride 0.65% Nasal Parnell 45 Ml Bottle) 1 ml PAULA Q4H [facility] Last Admin: 05/27/20 06:10 Dose: Not Given Documented by: Vancomycin HCl (Pharmacy To Dose - Vancomycin) 1 dose .XX ASDIRECTED [facility] Discontinued Medications Bupivacaine HCl (Bupivacaine 0.5% 30 Ml Sdv) Confirm Administered Dose 30 ml .ROUTE .STK-MED ONE Stop: 05/26/20 09:04 Furosemide (Furosemide 40 Mg Tab) 40 mg PO BIDDIURETIC [facility] Last Admin: 05/25/20 07:59 Dose: Not Given Documented by: Furosemide (Furosemide 40 Mg/4 Ml Vial) 40 mg IVPUSH NOW ONE Stop: 05/25/20 06:18 Last Admin: 05/25/20 06:41 Dose: 40 mg Documented by: Furosemide (Furosemide 20 Mg/2 Ml Vial) 60 mg IVPUSH DAILY [facility] Furosemide (Furosemide 40 Mg/4 Ml Vial) 60 mg IVPUSH TID [facility] Last Admin: 05/26/20 06:12 Dose: 60 mg Documented by: Vancomycin HCl 2 gm/ Premix 400 mls @ 200 mls/hr IV Q12H [facility] Last Admin: 05/26/20 08:23 Dose: Not Given Documented by: Lidocaine HCl (Lidocaine 1% 50 Ml Mdv) Confirm Administered Dose 50 ml .ROUTE .STK-MED ONE Stop: 05/26/20 09:04 Budesonide/Formoterol 160-4.5 Mcg/Puff 6 Gm Inhaler 2 each INH BIDRT [facility] Last Admin: 05/25/20 07:00 Dose: Not Given Documented by: Lenalidomide [ Revlimid] 15 Mg Capsule 1 each PO DAILY [facility] - Exam Quality Assessment: Reports: Supplemental Oxygen (5 L via nasal cannula) General: Reports: Alert, Oriented Lungs: Reports: Clear to Auscultation, Normal Respiratory Effort Cardiovascular: Reports: Regular Rate, Regular Rhythm GI/Abdominal Exam: Normal Bowel Sounds, Soft, Non-Tender Extremities: Pedal Edema Psy/Mental Status: Reports: Alert *Q Meaningful Use (DIS) - VTE *Q VTE Mechanical Contraindications *Q: Hypervolemia <Kenny Toussaint - Last Filed: 05/28/20 18:56> Discharge Summary - Referral to Home Health Primary Care Physician: Sommer De La O NP - Patient Summary/Data Consults: Consultations 05/25/20 17:29 Consult to Physician [CONS] Routine 05/27/20 09:43 Consult to Physical Therapy [PT Evaluation and Treatment] [CONS] Routine - Patient Data Vitals - Most Recent: Last Vital Signs Temp 36.6 C 05/27/20 09:40 Pulse 88 05/27/20 09:40 Resp 14 05/27/20 09:40 BP 110/70 05/27/20 09:40 Pulse Ox 85 L 05/27/20 09:40 ANJELICA Results - Last 24 hrs: Microbiology 05/26/20 09:25 Gram Stain - Final Foot, Left Wound Culture - Final Staphylococcus Coagulase Neg Med Orders - Current: Current Medications Discontinued Medications Hydrocodone Bitart/Acetaminophen (Acetaminophen/Hydrocodone 325-10 Mg Tab) 1 tab PO Q4H PRN PRN Reason: Pain Last Admin: 05/27/20 06:54 Dose: 1 tab Documented by: Albuterol (Albuterol 8 Gm Inhaler) 0 gm INH Q4H PRN PRN Reason: Shortness of Breath Albuterol/Ipratropium (Albuterol/Ipratropium 3.0-0.5 Mg/3 Ml Neb Soln) 3 ml NEB Q4HRRT PRN PRN Reason: Dyspnea Last Admin: 05/25/20 06:52 Dose: 3 ml Documented by: Alprazolam (Alprazolam 0.5 Mg Tab) 0.5 mg PO BID PRN PRN Reason: Anxiety Last Admin: 05/24/20 19:13 Dose: 0.5 mg Documented by: Budesonide/Formoterol Fumarate (Budesonide/Formoterol 160-4.5 Mcg/Puff 6 Gm Inhaler) 2 gm INH BIDRT JYOTSNA Last Admin: 05/27/20 05:49 Dose: 2 inhalation Documented by: Bupivacaine HCl (Bupivacaine 0.5% 30 Ml Sdv) Confirm Administered Dose 30 ml .ROUTE .STK-MED ONE Stop: 05/26/20 09:04 Dextrose/Water (50% Dextrose In Water 50 Ml Syringe) 50 ml IV ASDIRECTED PRN PRN Reason: Hypoglycemia Docusate Sodium (Docusate Sodium 100 Mg Cap) 200 mg PO BEDTIME JYOTSNA Last Admin: 05/25/20 20:05 Dose: 200 mg Documented by: Furosemide (Furosemide 40 Mg Tab) 40 mg PO BIDDIURETIC JYOTSNA Last Admin: 05/25/20 07:59 Dose: Not Given Documented by: Furosemide (Furosemide 40 Mg/4 Ml Vial) 40 mg IVPUSH NOW ONE Stop: 05/25/20 06:18 Last Admin: 05/25/20 06:41 Dose: 40 mg Documented by: Furosemide (Furosemide 20 Mg/2 Ml Vial) 60 mg IVPUSH DAILY [facility] Furosemide (Furosemide 40 Mg/4 Ml Vial) 60 mg IVPUSH TID [facility] Last Admin: 05/26/20 06:12 Dose: 60 mg Documented by: Furosemide (Furosemide 80 Mg Tab) 80 mg PO BIDDIURETIC JYOTSNA Last Admin: 05/27/20 09:25 Dose: 80 mg Documented by: Glucagon (Glucagon,Human Recombinant 1 Mg Vial) 1 mg IM ASDIRECTED PRN PRN Reason: Hypoglycemia Heparin Sodium (Porcine) (Heparin Sodium 5,000 Units/Ml Vial) 5,000 units SUBCUT Q8H [facility] Last Admin: 05/27/20 06:08 Dose: 5,000 units Documented by: Piperacillin Sod/Tazobactam (Sod 4.5 gm/ Sodium Chloride) 100 mls @ 200 mls/hr IV Q6H [facility] Last Admin: 05/27/20 06:06 Dose: 200 mls/hr Documented by: Vancomycin HCl 2 gm/ Premix 400 mls @ 200 mls/hr IV Q12H [facility] Last Admin: 05/26/20 08:23 Dose: Not Given Documented by: Vancomycin HCl (Vancomycin 1.5 Gm/300 Ml) 300 mls @ 200 mls/hr IV Q24H [facility] Last Admin: 05/27/20 09:30 Dose: 200 mls/hr Documented by: Insulin Aspart (Insulin Aspart 100 Units/Ml 3 Ml Pen) 0 unit SUBCUT TIDAC [facility]; Protocol Last Admin: 05/27/20 09:31 Dose: 2 unit Documented by: Insulin Glargine (Insulin Glargine,Human Rec. Analog 100 Units/Ml 3 Ml Pen) 10 units SUBCUT BEDTIME PRN PRN Reason: Hyperglycemia Last Admin: 05/25/20 22:15 Dose: 10 units Documented by: Levothyroxine Sodium (Levothyroxine 112 Mcg Tab) 112 mcg PO ACBREAKFAST [facility] Last Admin: 05/27/20 06:50 Dose: 112 mcg Documented by: Lidocaine HCl (Lidocaine 1% 50 Ml Mdv) Confirm Administered Dose 50 ml .ROUTE .STK-MED ONE Stop: 05/26/20 09:04 Metolazone (Metolazone 5 Mg Tab) 5 mg PO DAILY [facility] Last Admin: 05/27/20 09:24 Dose: 5 mg Documented by: Budesonide/Formoterol 160-4.5 Mcg/Puff 6 Gm Inhaler 2 each INH BIDRT [facility] Last Admin: 05/25/20 07:00 Dose: Not Given Documented by: Lenalidomide [ Revlimid] 15 Mg Capsule 1 each PO DAILY [facility] Potassium Chloride (Potassium Chloride 10 Meq Tab.Er) 10 meq PO DAILY [facility] Last Admin: 05/27/20 09:24 Dose: 10 meq Documented by: Sodium Chloride (Sodium Chloride 0.65% Nasal Parnell 45 Ml Bottle) 1 ml PAULA Q4H [facility] Last Admin: 05/27/20 06:10 Dose: Not Given Documented by: Vancomycin HCl (Pharmacy To Dose - Vancomycin) 1 dose .XX ASDIRECTED JYOTSNA - Free Text/Narrative Note: I have seen and evaluated the patient with the resident. I discussed findings and treatment plan with the resident. I agree with the assessment and plan outlined in the resident's note.
--- NOTE | 2020-05-28 09:36 | CR ---
INDICATION: Foot surgery. TECHNIQUE: Intraoperative views left foot. Fluoroscopy time 8.1 seconds. Impression. 8 images. Surgical instrument and operative site at the distal 5th metatarsal. Please refer to the operative report. Dictated by Hola Hammer MD @ May 28 2020 9:34AM Signed by Dr. Hola Hammer @ May 28 2020 9:34AM
--- NOTE | 2020-05-28 12:14 | ECHO ---
EXAM DATE: 05/24/20 PATIENT'S AGE: 60 The ECHO report has been scanned into [facility] and can be seen in this patient's EMR (Electronic Medical Record) under the REPORTS section. The report has also been scanned into PACS. PERRY
== END 2020-05-27 12:05 | disposition home or self-care (01) | DRG 629 ==
LOC: MW.MS 15:23
PROVIDERS: ADMIT Internal Medicine; ATTEND Internal Medicine
PROC: 0QBP0ZZ Excision of Left Metatarsal, Open Approach (ICD-10-PCS; principal; 2020-05-26)
DX: E11.621 Type 2 diabetes mellitus with foot ulcer (principal); C90.00 Multiple myeloma not having achieved remission; M86.9 Osteomyelitis, unspecified; J44.9 Chronic obstructive pulmonary disease, unspecified; E03.9 Hypothyroidism, unspecified; L97.529 Non-pressure chronic ulcer of other part of left foot with unspecified severity; Z20.822 Contact with and (suspected) exposure to COVID-19; E11.69 Type 2 diabetes mellitus with other specified complication; E11.65 Type 2 diabetes mellitus with hyperglycemia; I11.0 Hypertensive heart disease with heart failure; F17.200 Nicotine dependence, unspecified, uncomplicated; I50.9 Heart failure, unspecified; Z79.890 Hormone replacement therapy; Z99.81 Dependence on supplemental oxygen; Z79.899 Other long term (current) drug therapy
CPT/HCPCS: 01480; 36415; 71045; 71045-26; 76000; 76000-26; 80053; 80202; 82962; 83036; 83735; 83880; 84100; 84443; 85025; 87070; 87075; 87205; 88304; 93005; 93306; 94640; 97162-GP; 97802; 99221; 99231; 99232; 99239; A9270-GY; J1644; J1815-GY; J1940; J2001; J2543; J3370; J3490; J7620-GY; U0002

== ENCOUNTER 2022-08-08 17:58 | Emergency (ER) | payer MEDICARE, MEDICAID ==
[2022-08-08] MEDS ORDERED: Ondansetron 4 MG/2 ML SDV IVPUSH ONE (18:19)
[2022-08-08] MEDS ORDERED: Sodium Chloride 0.9% 2.5 ML Syringe FLUSH PRN (18:19)
[2022-08-08] MEDS ORDERED: Sodium Chloride 0.9% 1,000 ML IV ONE (18:19)
[2022-08-08] MEDS ORDERED: Sodium Chloride 0.9% 10 ML Syringe FLUSH PRN (18:19)
[2022-08-08] MEDS ORDERED: Folic Acid 1 MG Tab PO ONE (18:21)
[2022-08-08] MEDS ORDERED: Thiamine 100 MG in Sodium Chloride 0.9% 100 ML IV ONE (18:21)
[2022-08-08] MEDS ORDERED: Thiamine 200 MG/2 ML MDV IVPUSH ONE (18:26)
[2022-08-08 18:28] LABS: BASOPHILS PERCENT AUTO 0.6 % (0.0-1.5); EOSINOPHILS ABSOLUTE AUTO 0.2 K/uL (0.0-0.7); EOSINOPHILS PERCENT AUTO 3.5 % (0.0-7.0); HEMATOCRIT 44.7 % (38.0-50.0); HEMOGLOBIN 15.1 g/dL (13.0-17.0); LYMPHOCYTES ABSOLUTE AUTO 1.6 K/uL (0.6-2.4); MEAN CORPUSCULAR HEMOGLOBIN 29.3 pg (27.0-32.0); MEAN CORPUSCULAR HGB CONC 33.8 g/dL (31.0-37.0); MEAN CORPUSCULAR VOLUME 86.8 fL (80.0-98.0); MONOCYTES ABSOLUTE AUTO 0.5 K/uL (0.0-0.8); MONOCYTES PERCENT AUTO 8.6 % (0.0-15.0); NEUTROPHILS ABSOLUTE AUTO 3.2 K/uL (1.4-5.7); NEUTROPHILS PERCENT AUTO 58.3 % (48.0-80.0); NRBC ABSOLUTE 0 K/uL; PLATELET COUNT,PLT 110 K/uL (150-400); RED BLOOD CELL COUNT 5.15 M/uL (4.50-5.90); WHITE BLOOD CELL COUNT,WBC 5.44 K/uL (4.0-11.0)
[2022-08-08] MEDS ORDERED: LORazepam 2 MG/ML SDV IVPUSH ONE (18:37)
[2022-08-08 18:52] LABS: A/G RATIO 1.2 (0.9-1.6); ALBUMIN 3.9 g/dL (3.4-5.0); BILIRUBIN TOTAL 0.9 mg/dL (0.2-1.0); CALCIUM 8.4 mg/dL (8.5-10.1); CARBON DIOXIDE,CO2 29.6 mmol/L (21.0-32.0); CREATININE 0.9 mg/dL (0.8-1.3); EST CRCL DRUG DOSING (CG) 93.41 mL/min; MAGNESIUM 1.6 mg/dL (1.8-2.4); POTASSIUM,K 3.5 mmol/L (3.5-5.1); PROTEIN TOTAL,TP 7.1 g/dL (6.4-8.2); TSH ULTRASENSITIVE 2.01 uIU/mL (0.36-3.74)
[2022-08-08] MEDS ORDERED: Nicotine 21 MG/24 Hr Patch TRDERM ONE (19:16)
[2022-08-08 19:30] LABS: APPEARANCE,URINE CLEAR; BILIRUBIN,URINE NEGATIVE (NEGATIVE); COLOR,URINE DARK YELLOW; GLUCOSE,URINE NEGATIVE (NEGATIVE); KETONES,URINE TRACE mg/dL (NEGATIVE); LEUKOCYTE ESTERASE,URINE NEGATIVE (NEGATIVE); NITRITE,URINE NEGATIVE (NEGATIVE); OCCULT BLOOD,URINE NEGATIVE (NEGATIVE); PH,URINE 6.5 (5.0-8.0); PROTEIN,URINE NEGATIVE (NEGATIVE); UROBILINOGEN,URINE >=8.0 EU/dL (<2.0)
[2022-08-08 19:38] LABS: AMPHETAMINES SCREEN, URINE NEGATIVE (CUTOFF=500); BARBITURATE SCREEN,URINE NEGATIVE (CUTOFF=200); BENZODIAZEPINES SCREEN,URINE PRESUMPTIVE POSITIVE (CUTOFF=150); BUPRENORPHINE SCREEN,URINE NEGATIVE (CUTOFF=10); METHADONE SCREEN, URINE NEGATIVE (CUTOFF=200); METHAMPHETAMINES SCREEN, URINE NEGATIVE (CUTOFF=500); OXYCODONE SCREEN,URINE NEGATIVE (CUT0FF=100); PCP SCREEN,URINE NEGATIVE (CUTOFF=25); PROPOXYPHENE SCREEN,URINE NEGATIVE (CUTOFF=300); THC SCREEN,URINE 20 NG/ML NEGATIVE (CUTOFF=50)
== END 2022-08-08 20:09 | disposition left against medical advice (07) ==
LOC: MW.ED 17:58
DX: F10.229 Alcohol dependence with intoxication, unspecified (principal); I11.0 Hypertensive heart disease with heart failure; I50.9 Heart failure, unspecified; E78.00 Pure hypercholesterolemia, unspecified; J44.9 Chronic obstructive pulmonary disease, unspecified; E11.9 Type 2 diabetes mellitus without complications; E03.9 Hypothyroidism, unspecified; E66.9 Obesity, unspecified; Z68.33 Body mass index [BMI] 33.0-33.9, adult; Z79.4 Long term (current) use of insulin; Y90.6 Blood alcohol level of 120-199 mg/100 ml
CPT/HCPCS: 36415; 71045; 80053; 80305; 80307; 81003; 83690; 83735; 84443; 84484; 85025; 93005; 96361; 96374; 96375; 99285; A9270; J2060; J2405; J3411; J3490; J7030; 93010; 99284